=== PATIENT | male | born 1935 | race Caucasian/White ===

== ENCOUNTER 2017-06-19 15:44 | Inpatient (IN) | payer MEDICARE, OTHER ==
[~2017-06-19] VITALS: Ht 167.6 cm; Wt 75.0 kg
[~2017-06-19 15:44] MED LIST: ASPI81TA28 PO; ATEN-173 PO; LISI20TA3 PO; PANT40TA PO
[2017-06-19 17:06] LABS: BASO % 0.5 %; BASO ABS # 0.03 K/uL (0-0.2); EOS % 0.5 %; EOS ABS # 0.03 K/uL (0-0.5); HEMATOCRIT 37.2 % (42-52); HEMOGLOBIN 12.4 g/dL (14.0-18.0); IG# 0.01 K/uL (0.00-0.02); LYMPH % 6.6 %; LYMPH ABS # 0.42 K/uL (1.2-3.4); MEAN CELL VOLUME 92.1 fL (80-100); MEAN CORPUSCULAR HEMOGLOBIN 30.7 pg (25-34); MEAN CORPUSCULAR HGB CONC 33.3 g/dl (32-36); MEAN PLATELET VOLUME 8.9 fL (7.4-10.4); MONO ABS # 0.51 K/uL (0.11-0.59); NEUT % 84.2 %; NEUT ABS # 5.41 K/uL (1.4-6.5); PLATELET COUNT 186 K/uL (130-400); RED CELL DISTRIBUTION WIDTH CV 13.9 % (11.5-14.5); RED CELL DISTRIBUTION WIDTH SD 47.3 fL (36.4-46.3); WHITE BLOOD COUNT 6.41 K/uL (4.8-10.8)
[2017-06-19 17:16] LABS: INR 1.1 (0.9-1.1); PTT PATIENT 33.8 SECONDS (21.0-31.0)
[2017-06-19 17:23] LABS: ALT/SGPT 20 U/L (12-78); BLOOD UREA NITROGEN 22 mg/dl (7-18); CALCIUM 8.5 mg/dl (8.5-10.1); CARBON DIOXIDE 24 mmol/L (21-32); CREATININE 1.34 mg/dl (0.60-1.40); GLUCOSE 98 mg/dl (70-99); POTASSIUM 4.2 mmol/L (3.5-5.1); SODIUM 133 mmol/L (136-145)
[2017-06-19 17:34] LABS: ALKALINE PHOSPHATASE 104 U/L (45-117); AST/SGOT 18 U/L (15-37); TOTAL PROTEIN 7.3 gm/dl (6.4-8.2)
--- NOTE | 2017-06-19 17:53 | DIAGNOSTIC IMAGING REPORT ---
TWO VIEW CHEST CLINICAL HISTORY: Cough. FINDINGS: AP and lateral chest radiographs are obtained. No prior studies are available for comparison at the time of dictation. The AP views degraded by patient rotation. The heart is enlarged. There diffuse bilateral airspace opacities, greatest in the left upper and right lower lobes. No large pleural effusion is identified. There is no pneumothorax. The skeletal structures are osteopenic. Bony thorax appears intact. IMPRESSION: 1. Cardiomegaly. 2. There are multifocal bilateral airspace opacities. Is present pulmonary edema and/or multifocal pneumonia. Clinical and laboratory correlation will be required. Radiographic follow-up to resolution is recommended. Electronically signed by: Lion Patterson M.D. 06/19/2017 5:52 PM Dictated Date/Time: 06/19/2017 5:50 PM
[2017-06-19] MEDS ORDERED: LEVAQUIN 750MG / 150ML D5W IV STA (18:08)
[2017-06-19] MEDS ORDERED: ASPIRIN 324 MG CHEW PO STA (18:19)
[2017-06-19] MEDS ORDERED: ACET-1311 PO (18:46)
[2017-06-19] MEDS ORDERED: HydrALAZINE HCL 20 MG/ML VIAL IV. PRN (19:15)
[2017-06-19] MEDS ORDERED: SODIUM CHLORIDE 0.9% 1000ML 1,000 ML IV SCH (19:15)
[2017-06-19] MEDS ORDERED: NITROGLYCERIN 0.4 MG SL PER TAB CHARGE SL PRN (19:15)
[2017-06-19] MEDS ORDERED: ONDANSETRON INJ 2 MG/ML 2 ML VIAL IV PRN (19:15)
[2017-06-19] MEDS ORDERED: POLYETHYLENE (MIRALAX) 17 GM PACK PO PRN (19:15)
[2017-06-19] MEDS ORDERED: MoRPHine SULFATE 2 MG/ML CARP IV PRN (19:15)
[2017-06-19] MEDS ORDERED: ALUMINUM/MAGNESIUM/SIMETH (MAALOX MAX) 30 ML UDC PO PRN (19:15)
[2017-06-19] MEDS ORDERED: MAGNESIUM HYDROXIDE SUSP 30 ML UDC PO PRN (19:15)
[2017-06-19] MEDS ORDERED: METOPROLOL TARTRATE 1 MG/ML VIAL IV PRN (19:30)
--- NOTE | 2017-06-19 19:39 | History and Physical ---
History & Physical Date & Time of Service: Jun 19, 2017 at 19:19 Chief Complaint: Cath Site Pain, Weakness, Cough Primary Care Physician: No Doctor, Assigned History of Present Illness Source: patient, clinic records, hospital records Patient is a pleasant 81 y/o male, with PMHx of urinary retention w/ chronic Haque, who presented to the ED because of a cough. Patient is a poor historian, no family present. He is visiting his niece from [place]. He states he has a productive milky white cough for a few days now. He denies any other complaints. He has urinary retention and a chronic Haque in place- he notes this AM he had penile spasms, but that has since resolved. He denies following w / urology here- his Urologist is in [place]. He states he a fall the other night while trying to get out of bed. Denies syncope, lightheadedness/ dizziness. He denies any injuries. Patient denies any fever, chills, sweats, lightheadedness, dizziness, vision changes, CP, palpitations, edema, SOB, wheezing, abdominal pain, nausea, vomiting, diarrhea, urinary symptoms, melena, numbness/tingling, weakness, muscle/joint pain, anxiety/depression, active bleeding, or new skin discoloration/changes. Past Medical/Surgical History Medical Problems: None Surgical History: None Family History Cancer Diabetes mellitus Heart disease Hypertension Social History Smoking Status: Former Smoker Alcohol Use: none Drug Use: marijuana Marital Status: Housing status: lives with family Occupational Status: retired Allergies Coded Allergies: No Known Allergies (Unverified , 07/26/13) Home Medications Scheduled PRN Acetaminophen (Tylenol), 650 MG PO BID PRN for Pain or Fever Physical Exam Vital Signs Date Time Temp Pulse Resp B/P (MAP) Pulse Ox O2 Delivery O2 Flow Rate FiO2 06/19/17 18:30 76 31 149/100 98 Room Air 06/19/17 17:18 83 29 145/97 94 Room Air 06/19/17 17:07 75 06/19/17 15:50 37.5 93 20 121/79 100 Room Air General Appearance: no apparent distress Head: normocephalic, atraumatic Eyes: normal inspection, PERRL ENT: hearing grossly normal Neck: supple Respiratory/Chest: no respiratory distress, no accessory muscle use, + decreased breath sounds (throughout ), + wheezing (mild expiratory wheeze throughout ) Cardiovascular: + irregularly irregular (rate controlled ) Abdomen/GI: normal bowel sounds, non tender, soft Back: normal inspection Extremities/Musculoskelatal: no calf tenderness, + swelling (+1 pitting edema of BLEs) Neurologic/Psych: alert, normal mood/affect, oriented x 3 Skin: normal color, warm/dry, no rash Diagnostics Laboratory Results Results Past 24 Hours Test 06/19/17 16:34 06/19/17 17:30 Range/Units White Blood Count 6.41 4.8-10.8 K/uL Red Blood Count 4.04 4.7-6.1 M/uL Hemoglobin 12.4 14.0-18.0 g/dL Hematocrit 37.2 42-52 % Mean Corpuscular Volume 92.1 80-100 fL Mean Corpuscular Hemoglobin 30.7 25-34 pg Mean Corpuscular Hemoglobin Concent 33.3 32-36 g/dl Platelet Count 186 130-400 K/uL Mean Platelet Volume 8.9 7.4-10.4 fL Neutrophils (%) (Auto) 84.2 % Lymphocytes (%) (Auto) 6.6 % Monocytes (%) (Auto) 8.0 % Eosinophils (%) (Auto) 0.5 % Basophils (%) (Auto) 0.5 % Neutrophils # (Auto) 5.41 1.4-6.5 K/uL Lymphocytes # (Auto) 0.42 1.2-3.4 K/uL Monocytes # (Auto) 0.51 0.11-0.59 K/uL Eosinophils # (Auto) 0.03 0-0.5 K/uL Basophils # (Auto) 0.03 0-0.2 K/uL RDW Standard Deviation 47.3 36.4-46.3 fL RDW Coefficient of Variation 13.9 11.5-14.5 % Immature Granulocyte % (Auto) 0.2 % Immature Granulocyte # (Auto) 0.01 0.00-0.02 K/uL Prothrombin Time 12.0 9.0-12.0 SECONDS Prothromb Time International Ratio 1.1 0.9-1.1 Activated Partial Thromboplast Time 33.8 21.0-31.0 SECONDS Partial Thromboplastin Ratio 1.3 Sodium Level 133 136-145 mmol/L Potassium Level 4.2 3.5-5.1 mmol/L Chloride Level 101 98-107 mmol/L Carbon Dioxide Level 24 21-32 mmol/L Anion Gap 8.0 3-11 mmol/L Blood Urea Nitrogen 22 7-18 mg/dl Creatinine 1.34 0.60-1.40 mg/dl Estimated GFR () 58.0 Estimated GFR (Non- 50.0 BUN/Creatinine Ratio 16.1 10-20 Random Glucose 98 70-99 mg/dl Calcium Level 8.5 8.5-10.1 mg/dl Magnesium Level 2.0 1.8-2.4 mg/dl Total Bilirubin 0.8 0.2-1 mg/dl Direct Bilirubin 0.3 0-0.2 mg/dl Aspartate Amino Transf (AST/SGOT) 18 15-37 U/L Alanine Aminotransferase (ALT/SGPT) 20 12-78 U/L Alkaline Phosphatase 104 45-117 U/L Troponin I 0.054 0-0.045 ng/ml Total Protein 7.3 6.4-8.2 gm/dl Albumin 3.0 3.4-5.0 gm/dl Urine Color DK YELLOW Urine Appearance CLOUDY CLEAR Urine pH 5.5 4.5-7.5 Urine Specific [place] 1.019 1.000-1.030 Urine Protein 3+ NEG Urine Glucose (UA) NEG NEG Urine Ketones NEG NEG Urine Occult Blood 3+ NEG Urine Nitrite NEG NEG Urine Bilirubin NEG NEG Urine Urobilinogen NEG NEG Urine Leukocyte Esterase MODERATE NEG Urine WBC (Auto) >30 0-5 /hpf Urine RBC (Auto) >30 0-4 /hpf Urine Hyaline Casts (Auto) 1-5 0-5 /lpf Urine Epithelial Cells (Auto) 5-10 0-5 /lpf Urine Bacteria (Auto) NEG NEG Microbiology Results 06/19/17 Blood Culture, Received Pending 06/19/17 Blood Culture, Received Pending Diagnostic Radiology TWO VIEW CHEST CLINICAL HISTORY: Cough. FINDINGS: AP and lateral chest radiographs are obtained. No prior studies are available for comparison at the time of dictation. The AP views degraded by patient rotation. The heart is enlarged. There diffuse bilateral airspace opacities, greatest in the left upper and right lower lobes. No large pleural effusion is identified. There is no pneumothorax. The skeletal structures are osteopenic. Bony thorax appears intact. IMPRESSION: 1. Cardiomegaly. 2. There are multifocal bilateral airspace opacities. Is present pulmonary edema and/or multifocal pneumonia. Clinical and laboratory correlation will be required. Radiographic follow-up to resolution is recommended. Electronically signed by: Lion Patterson M.D. 06/19/2017 5:52 PM Dictated Date/Time: 06/19/2017 5:50 PM The status of this report is Signed. Draft = Not yet reviewed or approved by Radiologist. Signed = Reviewed and approved by Radiologist. EKG JAGDEEP NOLASCO ID:[id number] 19-JUN-2017 16:24:12 [facility] Atrial fibrillation Right bundle branch block Left anterior fascicular block Bifascicular block Septal infarct , age undetermined Abnormal ECG No previous ECGs available 25mm/s 10mm/mV 150Hz 8.0 SP2 12SL 241 SUPA: 0 Referred by: Referred Self Unconfirmed Vent. rate 73 BPM DE interval * ms QRS duration 154 ms QT/QTc 440/484 ms P-R-T axes * -72 78 1935 (81 yr) Male Room:[facility] Loc:15 Manufacturing Intern:JUSTYNA NORRIS Test ind: JAGDEEP NOLASCO ID:[id number] 19-JUN-2017 18:27:20 [facility] Undetermined rhythm Left axis deviation Right bundle branch block Abnormal ECG When compared with ECG of 19-JUN-2017 16:24, (unconfirmed) Current undetermined rhythm precludes rhythm comparison, needs review 25mm/s 10mm/mV 150Hz 8.0 SP2 12SL 241 SUPA: 3 Referred by: Referred Self Unconfirmed Vent. rate 74 BPM DE interval * ms QRS duration 136 ms QT/QTc 436/483 ms P-R-T axes * -70 62 1935 (81 yr) Male Room: Loc:15 Manufacturing Intern:Jessica Whitney Test ind: Impression Assessment and Plan Patient is a pleasant 81 y/o male, with PMHx of urinary retention w/ chronic Haque, who presented to the ED because of a cough. Multifocal PNA vs ?CHF, new onset a.fib- rates controlled, elevated troponin: - Admit to tele for cardiac monitoring - Trend cardiac enzymes - Obtain ECHO - Start IV Heparin gtt with plans to transition to PO anticoagulation - IV Metoprolol PRN for HR >120 - IV Levaquin - Nitro and IV Morphine PRN for chest pain - DuoNebs QID and PRN for SOB/wheezing - BCx, sputum culture, MRSA swab pending - Check TSH, lipid panel, hgbA1c - Check bNP Mild hyponatremia: Follow PRP Urinary retention w/ indwelling Haque- noted HTN: IV Hydralazine PRN DVT prophylaxis: Heparin gtt Code status: LEVEL V, DNR Dispo: Visiting w/ niece, from [place]- PT/OT and CM consulted Attending Documentation: Patient seen and examined, chart reviewed, case discussed with REMA Rosas and I agree with her assessment and plan as documented above. Briefly, patient is a 81yo male with history of urinary retention with chronic Haque in place who presents to the ER with productive cough x 4 days, decreased appetite and penile spasm. On physical exam he is afebrile, hemodynamically stable. Pleasant elderly gentleman in NAD. HEENT exam is unremarkable. Neck supple, no JVD. Heart +S1/ S2, irregularly irregular, 3/6 MILAN at apex with radiation to back, no rubs/ gallops. Lungs with bilateral crackles to mid lung chowdhury. 2+ pitting LE edema to the knees equal bilaterally. Haque catheter in place. Labs significant for normocytic/normochromic anemia, Hg=12.4 and Hct=37.2, Elevated troponin at 0.054. +UA. CXR suggestive for multifocal PNA. EKG with AF at 73 with bifascicular block and ST depressions Impression: 81yo male with productive cough, new onset AF and mildly elevated troponin 1. ?PNA vs CHF check BNP, 2D echo, cultures. Levaquin for PNA 2. AF patient reports no prior cardiac history. Rate controlled at present. Will anticoagulate with heparin gtt for now. Metoprolol PRN Check TSH, trend cardiac enzymes, monitor electrolytes. Cardiology consultation per discretion of day team 3. Elevated troponin monitor cardiac enzymes, ASA 81mg po daily, Statin 4. Remainder of plan as above Resuscitation Status LEVEL V, DNR VTE Prophylaxis Will order VTE Prophylaxis: Yes
[2017-06-19] MEDS: ALBUT/IPRATROP 3MG/0.5MG NEB 3 ML VIAL INH SCH (20:00)
[2017-06-19] MEDS ORDERED: HEPARIN IV BOLUS 5,000 UNIT in SYRINGE 0 ML IV ONE (21:15)
[2017-06-19] MEDS ORDERED: FUROSEMIDE INJ 40 MG in SYRINGE 0 ML IV ONE (21:15)
[2017-06-19] MEDS: HEPARIN 25,000 UNIT/500ML D5W 500 ML IV SCH (21:40)
--- NOTE | 2017-06-19 22:02 | EMERGENCY ROOM VISIT NOTE ---
History Report prepared by Melania: Yovani Bradford Under the Supervision of: Dr. Mundo Sanchez M.D. First contact with patient: 16:06 Chief Complaint: OTHER COMPLAINT Stated Complaint: CATH SITE PAIN, WEAKNESS, COUGH History of Present Illness The patient is a 81 year old male who presents to the Emergency Room with complaints of constant penile pain around the entry site of his urinary catheter that began on Sunday 4 days ago. He denies any leaking or discharge from the penis. The patient has had the catheter placed since 2012, secondary to chronic urinary issues. The catheter was most recently changed 2 weeks ago by urology. The patient's daughter notes that he does follow with Dr. Mejía, who the patient will see later this month to see if a suprapubic catheter would be more appropriate. In March, 3 months ago, the patient was diagnosed with a UTI and chronic kidney failure at a hospital in [place]. He was told that his kidney failure was due to Ibuprofen usage. He has not had any Ibuprofen since this diagnosis. He has also had a persistent cough that is producing a "milky" mucous per the daughter. There has not been any fevers or chest pain. He has been slightly short of breath. The daughter continued to mention that his breathing seemed "faster" last night. The patient did experience a falling episode last night as he was trying to get out of bed. He slid down onto his but and denies hitting his head or injuring his neck. The swelling in his feet seems to be worsening as well. Source of History: patient, family Onset: 4 days ago Position: other () Quality: other (Penis pain around catheter site) Timing: constant Associated Symptoms: + cough, + SOB, No fevers, No headache, No neck pain, No chest pain Review of Systems See HPI for pertinent positives & negatives. A total of 10 systems reviewed and were otherwise negative. Past Medical & Surgical Medical Problems: (1) A-fib (2) HTN (hypertension) (3) PNA (pneumonia) (4) Skin problems (5) Stomach problems (6) Ulcer (7) Urinary problem Family History Cancer Diabetes mellitus Heart disease Hypertension Social History Smoking Status: Former Smoker Marital Status: Housing Status: unknown Occupation Status: retired Current/Historical Medications Scheduled PRN Acetaminophen (Tylenol), 650 MG PO BID PRN for Pain or Fever Allergies Coded Allergies: No Known Allergies (Unverified , 5/17/14) Physical Exam Vital Signs Date Time Temp Pulse Resp B/P (MAP) Pulse Ox O2 Delivery O2 Flow Rate FiO2 06/19/17 18:30 76 31 149/100 98 Room Air 06/19/17 17:18 83 29 145/97 94 Room Air 06/19/17 17:07 75 06/19/17 15:50 37.5 93 20 121/79 100 Room Air Physical Exam Constitutional: Vital signs reviewed. Eyes: Pupils are equal round reactive to light. Conjunctiva are noninjected. ENT: Pharynx is clear without erythema or exudate. Mucous membranes are moist. Neck supple without meningeal signs. Respiratory: Clear to auscultation bilaterally. Breath sounds are equal bilaterally. Cardiovascular: Regular rate and rhythm. No rubs or gallops. GI: Soft, nondistended and nontender. Bowel sounds are present. Musculoskeletal: Mild bilateral pedal edema. No lower extremity tenderness. No flank or rib tenderness. Integumentary: No cyanosis. Neurological: The patient is awake and alert. No focal deficits. Psychiatric: Normal affect. : The phallus shows some whitish coating, with some mild erythema and tenderness. There is a Haque catheter in place without any bleeding or discharge. Medical Decision & Procedures ER Provider Diagnostic Interpretation: Radiology results as stated below per my review and the radiologist's interpretation: TWO VIEW CHEST CLINICAL HISTORY: Cough. FINDINGS: AP and lateral chest radiographs are obtained. No prior studies are available for comparison at the time of dictation. The AP views degraded by patient rotation. The heart is enlarged. There diffuse bilateral airspace opacities, greatest in the left upper and right lower lobes. No large pleural effusion is identified. There is no pneumothorax. The skeletal structures are osteopenic. Bony thorax appears intact. IMPRESSION: 1. Cardiomegaly. 2. There are multifocal bilateral airspace opacities. Is present pulmonary edema and/or multifocal pneumonia. Clinical and laboratory correlation will be required. Radiographic follow-up to resolution is recommended. Electronically signed by: Lion Patterson M.D. 06/19/2017 5:52 PM Dictated Date/Time: 06/19/2017 5:50 PM Laboratory Results 06/19/17 16:34 Red Blood Count 4.04, Mean Corpuscular Volume 92.1, Mean Corpuscular Hemoglobin 30.7, Mean Corpuscular Hemoglobin Concent 33.3, Mean Platelet Volume 8.9, Neutrophils (%) (Auto) 84.2, Lymphocytes (%) (Auto) 6.6, Monocytes (%) (Auto) 8.0, Eosinophils (%) (Auto) 0.5, Basophils (%) (Auto) 0.5, Neutrophils # (Auto) 5.41, Lymphocytes # (Auto) 0.42, Monocytes # (Auto) 0.51, Eosinophils # (Auto) 0.03, Basophils # (Auto) 0.03 06/19/17 16:34 Test 06/19/17 16:34 06/19/17 17:30 White Blood Count 6.41 K/uL (4.8-10.8) Red Blood Count 4.04 M/uL (4.7-6.1) Hemoglobin 12.4 g/dL (14.0-18.0) Hematocrit 37.2 % (42-52) Mean Corpuscular Volume 92.1 fL (80-100) Mean Corpuscular Hemoglobin 30.7 pg (25-34) Mean Corpuscular Hemoglobin Concent 33.3 g/dl (32-36) Platelet Count 186 K/uL (130-400) Mean Platelet Volume 8.9 fL (7.4-10.4) Neutrophils (%) (Auto) 84.2 % Lymphocytes (%) (Auto) 6.6 % Monocytes (%) (Auto) 8.0 % Eosinophils (%) (Auto) 0.5 % Basophils (%) (Auto) 0.5 % Neutrophils # (Auto) 5.41 K/uL (1.4-6.5) Lymphocytes # (Auto) 0.42 K/uL (1.2-3.4) Monocytes # (Auto) 0.51 K/uL (0.11-0.59) Eosinophils # (Auto) 0.03 K/uL (0-0.5) Basophils # (Auto) 0.03 K/uL (0-0.2) RDW Standard Deviation 47.3 fL (36.4-46.3) RDW Coefficient of Variation 13.9 % (11.5-14.5) Immature Granulocyte % (Auto) 0.2 % Immature Granulocyte # (Auto) 0.01 K/uL (0.00-0.02) Prothrombin Time 12.0 SECONDS (9.0-12.0) Prothromb Time International Ratio 1.1 (0.9-1.1) Activated Partial Thromboplast Time 33.8 SECONDS (21.0-31.0) Partial Thromboplastin Ratio 1.3 Anion Gap 8.0 mmol/L (3-11) Estimated GFR () 58.0 Estimated GFR (Non- 50.0 BUN/Creatinine Ratio 16.1 (10-20) Calcium Level 8.5 mg/dl (8.5-10.1) Magnesium Level 2.0 mg/dl (1.8-2.4) Total Bilirubin 0.8 mg/dl (0.2-1) Direct Bilirubin 0.3 mg/dl (0-0.2) Aspartate Amino Transf (AST/SGOT) 18 U/L (15-37) Alanine Aminotransferase (ALT/SGPT) 20 U/L (12-78) Alkaline Phosphatase 104 U/L (45-117) Troponin I 0.054 ng/ml (0-0.045) Pro-B-Type Natriuretic Peptide > 01323 pg/ml (0-1800) Total Protein 7.3 gm/dl (6.4-8.2) Albumin 3.0 gm/dl (3.4-5.0) Thyroid Stimulating Hormone (TSH) 0.787 uIu/ml (0.300-4.500) Urine Color DK YELLOW Urine Appearance CLOUDY (CLEAR) Urine pH 5.5 (4.5-7.5) Urine Specific [place] 1.019 (1.000-1.030) Urine Protein 3+ (NEG) Urine Glucose (UA) NEG (NEG) Urine Ketones NEG (NEG) Urine Occult Blood 3+ (NEG) Urine Nitrite NEG (NEG) Urine Bilirubin NEG (NEG) Urine Urobilinogen NEG (NEG) Urine Leukocyte Esterase MODERATE (NEG) Urine WBC (Auto) >30 /hpf (0-5) Urine RBC (Auto) >30 /hpf (0-4) Urine Hyaline Casts (Auto) 1-5 /lpf (0-5) Urine Epithelial Cells (Auto) 5-10 /lpf (0-5) Urine Bacteria (Auto) NEG (NEG) Laboratory results as reviewed by me. Medications Administered Medications (Trade) Dose Ordered Sig/Brittany Route Start Time Stop Time Status Last Admin Dose Admin Levofloxacin (Levaquin / D5W) 750 mg NOW STAT IV 06/19/17 18:08 4 18:09 DC 06/19/17 18:42 750 MG Aspirin (Aspirin Chew) 324 mg NOW STAT PO 06/19/17 18:19 06/19/17 18:20 DC 06/19/17 18:42 324 MG ECG Per My Interpretation Indication: SOB/dyspnea Rate (beats per minute): 73 Rhythm: atrial fibrillation Findings: other (bifascicular block with ST depression, biphasic t-waves septally. ) Change: REPEAT EKG: Shows sinus rhythm with frequent PVCs, atrial-fibrillation 74, RBBB , PVCs present, ST depressions resolved. ED Course 1608: The patient was evaluated in room B12B. A complete history and physical exam was performed. 1807: Ordered Levaquin 750 mg IV. 1811: I discussed the case with the patient and his daughter. He is not, and has not, had any chest discomfort. 1818: Ordered Aspirin 324 mg PO. 1842: I discussed the case with the patient at this time. There is no prior history of atrial fibrillation or contraindication for anticoagulation therapy. I discussed the ECG changes with him. I discussed the case with Dr. Lev PHAN Hospitalist. She states she would start the patient on anticoagulation therapy after addressing his fall risk. Medical Decision This is a 81-year-old male who presents with cough, shortness of breath, pain at his Haque catheter. Differential diagnosis includes pneumonia, cardiac, UTI , balanitis, bronchitis. I did perform a limited focused review of portions of the patient's old chart on the electronic medical record. The patient has had no recent pertinent visits to this hospital. I did evaluate the patient as noted above. The patient has several issues today. He has pain on his Haque catheter. He appears to have some balanitis. His Haque catheter was changed. He also complains of cough with shortness of breath. His family has been ill with similar symptoms. IV access was established. The patient was placed on a continuous environmental monitoring technician. I did order and personally review the patient's 12-lead EKG and chest x-ray as described above. His twelve-lead EKG shows atrial fibrillation. He states he has never had atrial fibrillation. His daughter confirms this. He also has some ST depressions and biphasic T waves. His chest x-ray shows multifocal pneumonia. Blood cultures were ordered. I did treat the patient with IV Levaquin. I did order and review the patient's blood work as noted in the electronic medical record. His troponin is elevated. I did reassess the patient. I did discuss the test results with the patient. He denies ever having any chest discomfort. He denies having atrial fibrillation. I did repeat another twelve-lead EKG which showed improvement of the ST elevations but he did have continued atrial fibrillation. I did recommend admission to the hospital for IV antibiotics as well as cardiology consultation and anticoagulation. I did discuss the case with the hospitalist and mental health case manager. The hospitalist will determine which anticoagulant to start. Medication Reconcilliation Current Medication List: was personally reviewed by me Blood Pressure Screening Patient's blood pressure: Normal blood pressure Consults Time Called: 1837 Consulting Physician: Dr. Lev PHAN Hospitalist Returned Call: 1842 Dr. Lev PHAN Hospitalist. She states she would start the patient on anticoagulation therapy after addressing his fall risk. Impression Primary Impression: Multifocal pneumonia Additional Impressions: Abnormal ECG Elevated troponin I level Catheter-associated urinary tract infection New onset a-fib Scribe Attestation The scribe's documentation has been prepared under my direct and personally reviewed by me in its entirety. I confirm that the note above accurately reflects all work, treatment, procedures, and medical decision making performed by me. Departure Information Dispostion Being Evaluated By Hospitalist Referrals No Doctor, Assigned (PCP) Patient Instructions My [facility] Problem Qualifiers Additional Impressions: Catheter-associated urinary tract infection Indwelling urinary catheter type: indwelling urethral catheter Encounter type : initial encounter Qualified Codes: T83.511A - Infection and inflammatory reaction due to indwelling urethral catheter, initial encounter; N39.0 - Urinary tract infection, site not specified
[2017-06-19 22:07] VITALS: BP 131/81; PULSE 67; TEMP 37.6; O2SAT 96; Ht 167.6 cm; Wt 75.0 kg
[2017-06-19] MEDS ORDERED: PNEUMOCOCCAL ADMINISTRATION CHARGE ONE (23:00)
[2017-06-19] MEDS ORDERED: PNEUMOCOCCAL POLYSACCHARIDES 25 MCG/0.5 ML VIAL/SYR IM. ONE (23:00)
[2017-06-19 23:33] VITALS: BP 132/79; PULSE 59; TEMP 36.6; O2SAT 96
[2017-06-20] VITALS (13 sets, daily range): BP systolic 136–178; BP diastolic 74–97; PULSE 57–78; TEMP 36.7–37.6; O2SAT 94–99
[2017-06-20 00:50] LABS: CKMB 0.9 ng/ml (0.5-3.6)
[2017-06-20 04:03] LABS: HEMATOCRIT 36.1 % (42-52); MEAN CELL VOLUME 91.2 fL (80-100); MEAN CORPUSCULAR HEMOGLOBIN 30.3 pg (25-34); MEAN CORPUSCULAR HGB CONC 33.2 g/dl (32-36); MEAN PLATELET VOLUME 8.7 fL (7.4-10.4); PLATELET COUNT 174 K/uL (130-400); RED CELL DISTRIBUTION WIDTH CV 13.8 % (11.5-14.5); RED CELL DISTRIBUTION WIDTH SD 46.5 fL (36.4-46.3); WHITE BLOOD COUNT 4.87 K/uL (4.8-10.8)
[2017-06-20 04:28] LABS: CALCIUM 8.7 mg/dl (8.5-10.1); CREATININE 1.27 mg/dl (0.60-1.40); POTASSIUM 4.1 mmol/L (3.5-5.1)
[2017-06-20 04:39] LABS: PTT PATIENT 47.4 SECONDS (21.0-31.0)
[2017-06-20] MEDS: ALBUT/IPRATROP 3MG/0.5MG NEB 3 ML VIAL INH SCH ×4 (07:05→19:04)
[2017-06-20] MEDS: ASPIRIN 81 MG CHEW PO SCH (07:45)
[2017-06-20] MEDS ORDERED: ATORVASTATIN 40 MG TAB PO SCH (09:00)
[2017-06-20 09:15] LABS: CKMB 0.6 ng/ml (0.5-3.6)
--- NOTE | 2017-06-20 10:56 | ECHOCARDIOGRAM REPORT ---
*NOTICE TO RECEIVING [employer] This information is strictly Confidential and protected under [place] law. [place] law prohibits you from making any further disclosure of this information unless further disclosure is expressly permitted by the written consent of the person to whom it pertains or is authorized by law. A general authorization for the release of medical or other information is not sufficient for this purpose. Hospital accepts no responsibility if the information is made available to any other person, INCLUDING THE PATIENT. Interpretation Summary * Name: JAGDEEP NOLASCO Study Date: 06/20/2017 07:35 AM BP: 152/92 mmHg * Patient Location: C.2T\S\S238\S\2 HR: 69 * : 1935 (M/d/yyyy) Gender: Male Height: 66 in * Age: 81 yrs Ethnicity: CA Weight: 164 lb * Ordering Physician: Mitzy Rosas * Referring Physician: Self, Referred * Performed By: Ashanti Gaitan, [facility] * * Reason For Study: A-FIB * BSA: 1.8 m2 * -- Conclusions -- * 1. Normal LV size. Mild concentric LVH. * 2. LVEF 35-40%. Mid to apical septum akinetic. Severe inferior hypokinesis. Moderate inferolateral hypokinesis. * 3. Normal RV size and function. * 4. Severe calcific aortic stenosis. Mild to moderate aortic regurgitation. * 5. Mild mitral regurgitation. * 6. Moderate pulmonary hypertension. Est PASP 55-60 mmHg. Normal RA pressures. * 7. Grade II diastolic dysfunction. * 8. No prior studies for comparison. Procedure Details * A complete two-dimensional transthoracic echocardiogram was performed (2D, M-mode, Doppler and color flow Doppler). Left Ventricle * The left ventricle is grossly normal size. * There is mild concentric left ventricular hypertrophy. * Ejection Fraction = 35-40%. * Mid to apical septum akinetic. Severe inferior hypokinesis. Moderate inferolateral hypokinesis. Right Ventricle * The right ventricle is grossly normal size. * The right ventricular systolic function is normal as assessed by tricuspid annular plane systolic excursion (TAPSE) (normal >1.5 cm). Atria * The left atrium is mildly dilated. * Borderline right atrial enlargement. * No ASD detected; PFO is not assessed. Mitral Valve * Posterior leaflet restricted * There is mild mitral regurgitation. Tricuspid Valve * There is trace tricuspid regurgitation. * Right ventricular systolic pressure is elevated at 50-60mmHg. Aortic Valve * Aortic valve calcified, thickned, restricted * Severe valvular aortic stenosis. * Mild to moderate aortic regurgitation. Pulmonic Valve * The pulmonary valve is inadequately visualized, but the Doppler data is adequate for interpretation. * There is no pulmonic valvular stenosis. * Mild pulmonic valvular regurgitation. Great Vessels * The aortic root and proximal ascending aorta are normal sized. Pericardium/Pleural * There is no pericardial effusion. Great Vessels * Normal inferior vena cava size and collapsability with sniff indicates a normal right atrial pressure of 3 mmHg Left Ventricular Diastolic Function * Diastolic dysfunction, Grade II, consistent with elevated left atrial pressure. MMode 2D Measurements and Calculations IVSd 1.5 cm IVSs 1.6 cm LVIDd 5.5 cm LVIDs 4.1 cm LVPWd 1.3 cm LVPWs 1.4 cm IVS/LVPW 1.2 FS 25.7 % EDV(Teich) 146.7 ml ESV(Teich) 73.2 ml EF(Teich) 50.1 % EDV(cubed) 165.4 ml ESV(cubed) 67.8 ml EF(cubed) 59.0 % % IVS thick 7.3 % % LVPW thick 8.1 % LV mass(C)d 347.0 grams LV mass(C)dI 188.8 grams/m\S\2 LV mass(C)s 248.9 grams LV mass(C)sI 135.4 grams/m\S\2 SV(Teich) 73.5 ml SI(Teich) 40.0 ml/m\S\2 SV(cubed) 97.6 ml SI(cubed) 53.1 ml/m\S\2 LA dimension 4.9 cm LVOT diam 1.8 cm LVOT area 2.6 cm\S\2 LVAd ap4 21.6 cm\S\2 LVLd ap4 6.9 cm EDV(MOD-sp4) 56.2 ml EDV(sp4-el) 57.4 ml LVAs ap4 33.3 cm\S\2 LVLs ap4 9.9 cm ESV(MOD-sp4) 89.6 ml ESV(sp4-el) 95.3 ml EF(MOD-sp4) -59.59 % EF(sp4-el) -66.03 % SV(MOD-sp4) -33.46 ml SI(MOD-sp4) -18.20 ml/m\S\2 SV(sp4-el) -37.89 ml SI(sp4-el) -20.61 ml/m\S\2 Doppler Measurements and Calculations MV E max luis 131.2 cm/sec MV P1/2t max luis 122.5 cm/sec MV P1/2t 76.7 msec MVA(P1/2t) 2.9 cm\S\2 MV dec slope 467.6 cm/sec\S\2 MV dec time 0.15 sec Ao V2 max 431.4 cm/sec Ao max PG 74.5 mmHg Ao max PG (full) 71.4 mmHg Ao V2 mean 328.4 cm/sec Ao mean PG 49.3 mmHg Ao mean PG (full) 47.6 mmHg Ao V2 VTI 104.9 cm HENRY(I,A) 0.47 cm\S\2 HENRY(I,D) 0.47 cm\S\2 HENRY(V,A) 0.53 cm\S\2 HENRY(V,D) 0.53 cm\S\2 AI max luis 415.9 cm/sec AI max PG 69.2 mmHg AI dec slope 278.7 cm/sec\S\2 AI P1/2t 437.0 msec LV V1 max PG 3.0 mmHg LV V1 mean PG 1.7 mmHg LV V1 max 86.9 cm/sec LV V1 mean 60.6 cm/sec LV V1 VTI 18.5 cm SV(LVOT) 48.8 ml SI(LVOT) 26.6 ml/m\S\2 PA V2 max 181.2 cm/sec PA max PG 13.1 mmHg PI max luis 291.6 cm/sec PI max PG 34.0 mmHg PI dec slope 183.4 cm/sec\S\2 PI P1/2t 465.7 msec TR max luis 326.0 cm/sec
--- NOTE | 2017-06-20 12:20 | Cardiology Consultation ---
Cardiology Consultation Date of Consultation: Jun 20, 2017. Requesting Physician: Ashanti Burnett Reason for Consultation: AF, Pt evaluation today including: conversation w/ patient, conversation w/ family , physical exam, lab review, review of studies, review of inpatient medication list History of Present Illness This is a very pleasant 81-year-old gentleman who lives in [place] but has had healthcare in other states but is currently visiting his niece here in [place]. He has had urologic problems due to an indwelling catheter, but has not been seen by cardiology locally. I do not have good records of his prior cardiovascular history, he initially told me that he was not aware of having any trouble with his heart however his niece tells me that he was evaluated in [place] and was told that he did have some cardiac problems (she did not know specifics) but refused evaluation at that time. He describes doing well physically until the last year so when he has had a lot of difficulties. Specifically he has less ability to do activities then he could in the past, he really cannot live by himself anymore and he has difficulty raising his right arm overhead and his speech has become more difficult to understand according to his knees. All of these things occurred over the last year, perhaps 6 months. He does not have lightheadedness or dizziness, he has no awareness of his heart rhythm and he does not have exertional chest discomfort that he will admit. On admission here for urologic issues he was noted to be in atrial fibrillation and have some congestive heart failure findings on chest x-ray. He also has significant valvular heart disease. Past Medical/Surgical History (1) HTN (hypertension) (2) Ulcer (3) Urinary problem Family History Cancer Diabetes mellitus Heart disease Hypertension Social History Smoking Status: Former Smoker History of Alcohol Use: No Review of Systems Constitutional: No fever, No weight loss, No weakness Respiratory: + shortness of breath, + dyspnea on exertion, No cough, No wheezing Cardiac: No chest pain, No orthopnea, No PND, No edema, No palpitations Abdomen: No pain, No nausea, No vomiting, No diarrhea, No GI bleeding Male : No urinary frequency, No nocturia more than once/night, No slowing stream, No sexual dysfunction Neurologic: No paralysis, No weakness, No numbness/tingling, No balance problems Heme: No abnormal bleeding/bruising, No clotting problems Endo: No fatigue Skin: No problem reported Inability to raise his right arm above his shoulder or use it normally All Other Systems: Reviewed and Negative Allergies Coded Allergies: No Known Allergies (Unverified , 07/26/13) Medications Current Inpatient Medications Medications (Trade) Dose Ordered Sig/Brittany Route Start Time Stop Time Status Last Admin Dose Admin Acetaminophen (Tylenol Tab) 650 mg Q4H PRN PO 06/19/17 19:15 07/19/17 19:14 Al Hydrox/Mg Hydrox/Simethicone (Maalox Max Susp) 15 ml Q4H PRN PO 06/19/17 19:15 07/19/17 19:14 Magnesium Hydroxide (Milk Of Magnesia Susp) 30 ml Q12H PRN PO 06/19/17 19:15 07/19/17 19:14 Ondansetron HCl (Zofran Inj) 4 mg Q6H PRN IV 06/19/17 19:15 07/19/17 19:14 Nitroglycerin (Nitrostat Tab) 0.4 mg UD PRN SL 06/19/17 19:15 07/19/17 19:14 Morphine Sulfate (MoRPHine SULFATE INJ) 2 mg Q30M PRN IV 06/19/17 19:15 07/03/17 19:14 Polyethylene (Miralax Powder Packet) 17 gm DAILY PRN PO 06/19/17 19:15 07/19/17 19:14 Albuterol/ Ipratropium (Duoneb) 3 ml QIDR INH 06/19/17 20:00 07/19/17 19:59 06/20/17 11:38 3 ML Albuterol/ Ipratropium (Duoneb) 3 ml Q4H PRN INH 06/19/17 19:15 07/19/17 19:14 Levofloxacin 750 mg/Prmx 150 ml @ 100 mls/hr Q24H IV 06/20/17 18:00 06/26/17 17:59 Hydralazine HCl (HydrALAZINE INJ) 10 mg Q6H PRN IV. 06/19/17 19:15 07/19/17 19:14 Metoprolol Tartrate (Lopressor Iv) 5 mg Q6H PRN IV 06/19/17 19:30 07/19/17 19:29 Aspirin (Aspirin Chew) 81 mg DAILY PO 06/20/17 09:00 5/11/18 08:59 06/20/17 07:45 81 MG Atorvastatin Calcium (Lipitor Tab) 80 mg QAM PO 06/20/17 09:00 07/20/17 08:59 06/20/17 07:45 80 MG Heparin Sodium/ Dextrose 500 ml @ 24 mls/hr [id number] IV 06/19/17 21:15 07/19/17 21:14 06/19/17 21:40 24 MLS/HR Physical Exam Vital Signs Past 12 Hours Date Time Temp Pulse Resp B/P (MAP) Pulse Ox O2 Delivery O2 Flow Rate FiO2 06/20/17 11:38 75 16 96 Room Air 06/20/17 11:27 37.5 64 19 141/91 (108) 96 Room Air 06/20/17 08:00 97 Room Air 06/20/17 07:48 36.7 57 18 178/81 (113) 97 06/20/17 07:09 78 18 96 Room Air 06/20/17 04:00 Room Air 06/20/17 03:40 36.8 66 20 152/92 (112) 94 Room Air 06/19/17 23:59 Room Air Constitutional: General Apperance: heathly-appearing Level of Distress: NAD Psychiatric: Mental Status: active & alert Head: normocephalic Eyes: EOM: EOMI ENMT: normal ENT inspection, hearing grossly normal Neck: supple, no masses Lungs: Respiratory effort: no dyspnea, good air movement Auscultation: no wheezing, rales/crackles on the left, rales/crackles on the right Cardiovascular: Heart Auscultation: no rubs, no gallops, II/ MILAN, II/ WSM, irregular rate rhythm Peripheral Pulses: Bruits: none appreciated Abdomen: Bowel Sounds: normal Inspection & Palpation: soft, no tenderness, guarding & rebound, no masses Musculoskeletal: pertinent finding (He cannot lift his right arm very well without assisting with his left, 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) Extremities: no edema Neurologic: Cranial Nerves: grossly intact Sensation: grossly intact Data Laboratory Results: Last 24 Hours Test 06/19/17 16:34 06/19/17 17:30 06/20/17 00:18 06/20/17 03:30 White Blood Count 6.41 K/uL 4.87 K/uL Red Blood Count 4.04 M/uL 3.96 M/uL Hemoglobin 12.4 g/dL 12.0 g/dL Hematocrit 37.2 % 36.1 % Mean Corpuscular Volume 92.1 fL 91.2 fL Mean Corpuscular Hemoglobin 30.7 pg 30.3 pg Mean Corpuscular Hemoglobin Concent 33.3 g/dl 33.2 g/dl Platelet Count 186 K/uL 174 K/uL Mean Platelet Volume 8.9 fL 8.7 fL Neutrophils (%) (Auto) 84.2 % Lymphocytes (%) (Auto) 6.6 % Monocytes (%) (Auto) 8.0 % Eosinophils (%) (Auto) 0.5 % Basophils (%) (Auto) 0.5 % Neutrophils # (Auto) 5.41 K/uL Lymphocytes # (Auto) 0.42 K/uL Monocytes # (Auto) 0.51 K/uL Eosinophils # (Auto) 0.03 K/uL Basophils # (Auto) 0.03 K/uL RDW Standard Deviation 47.3 fL 46.5 fL RDW Coefficient of Variation 13.9 % 13.8 % Immature Granulocyte % (Auto) 0.2 % Immature Granulocyte # (Auto) 0.01 K/uL Prothrombin Time 12.0 SECONDS Prothromb Time International Ratio 1.1 Activated Partial Thromboplast Time 33.8 SECONDS 47.4 SECONDS Partial Thromboplastin Ratio 1.3 1.8 Sodium Level 133 mmol/L 132 mmol/L Potassium Level 4.2 mmol/L 4.1 mmol/L Chloride Level 101 mmol/L 101 mmol/L Carbon Dioxide Level 24 mmol/L 24 mmol/L Anion Gap 8.0 mmol/L 7.0 mmol/L Blood Urea Nitrogen 22 mg/dl 22 mg/dl Creatinine 1.34 mg/dl 1.27 mg/dl Estimated GFR () 58.0 61.9 Estimated GFR (Non- 50.0 53.4 BUN/Creatinine Ratio 16.1 17.5 Random Glucose 98 mg/dl 84 mg/dl Calcium Level 8.5 mg/dl 8.7 mg/dl Magnesium Level 2.0 mg/dl Total Bilirubin 0.8 mg/dl Direct Bilirubin 0.3 mg/dl Aspartate Amino Transf (AST/SGOT) 18 U/L Alanine Aminotransferase (ALT/SGPT) 20 U/L Alkaline Phosphatase 104 U/L Troponin I 0.054 ng/ml 0.063 ng/ml Pro-B-Type Natriuretic Peptide > 69818 pg/ml Total Protein 7.3 gm/dl Albumin 3.0 gm/dl Thyroid Stimulating Hormone (TSH) 0.787 uIu/ml Urine Color DK YELLOW Urine Appearance CLOUDY Urine pH 5.5 Urine Specific [place] 1.019 Urine Protein 3+ Urine Glucose (UA) NEG Urine Ketones NEG Urine Occult Blood 3+ Urine Nitrite NEG Urine Bilirubin NEG Urine Urobilinogen NEG Urine Leukocyte Esterase MODERATE Urine WBC (Auto) >30 /hpf Urine RBC (Auto) >30 /hpf Urine Hyaline Casts (Auto) 1-5 /lpf Urine Epithelial Cells (Auto) 5-10 /lpf Urine Bacteria (Auto) NEG Creatine Kinase MB 0.9 ng/ml Creatine Kinase MB Ratio Est Creatinine Clear Calc Drug Dose 46.4 ml/min Estimated Average Glucose 97 mg/dl Hemoglobin A1c 5.0 % Triglycerides Level 49 mg/dl Cholesterol Level 101 mg/dl HDL Cholesterol 58 mg/dl LDL Cholesterol, Calculated 33 mg/dl VLDL Cholesterol, Calculated 10 mg/dl Cholesterol/HDL Ratio 1.7 Test 06/20/17 08:26 Creatine Kinase MB 0.6 ng/ml Creatine Kinase MB Ratio Troponin I 0.048 ng/ml Imaging: Chest x-ray shows cardiomegaly and what appears to be congestive heart failure signs EKG: Atrial fibrillation 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 The left ventricular ejection fraction is 35-40%, he has severe aortic stenosis and mild to moderate aortic insufficiency as well as mild mitral regurgitation. Assessment & Plan 1. Aortic stenosis: He has severe aortic stenosis, to the point where he likely will need valve replacement. I do not know how long this has been known , it evidently was identified in [place] relatively recently, possibly before that as we do not have records. In the past he has refused further evaluation. I discussed that with him, he told me that he was not afraid to and I explained to him that it would be a slow process but would get progressively worse. I recommended catheterization if he is interested in further treatment which would involve some type of valve replacement. He is going to think about it and we can do the catheterization here if he would like. His niece was present during the discussion and would like him to proceed. 2. Atrial fibrillation: I do not know how long he has had atrial fibrillation, it could be recent or could be long-standing. His rate is well controlled and he is not aware of it. He is now on an anticoagulant but was not as an outpatient. I agree with the use of heparin now, we should switch him to an oral anticoagulant and he should be on long-term anticoagulation. Rate control does not seem to be an issue at rest, we may have to evaluate that with exertion. 3. Cardiomyopathy: He has at least a moderate cardiomyopathy with ejection fraction 35-40%. This may be related to his aortic stenosis, however he has wall motion abnormalities and conduction abnormalities. We should exclude ischemic heart disease as a cause which we can identify at catheterization. Unless he wants to proceed with further evaluation or intervention I do not think there is any role for noninvasive testing. 4. Right arm weakness and dysarthria: His niece reports that his speech is much more difficult to understand over the last 6-12 months and he notes difficulty using his arm over that same period of time. Although he attributes this to some type of shoulder injury I am concerned that he could have had a stroke. I am going to get a CT scan to see whether he has an old stroke which would be helpful to know. Thank you for allowing me to participate in his care.
--- NOTE | 2017-06-20 15:47 | Hospitalist Progress Note ---
Hospitalist Progress Note Date of Service Jun 20, 2017. (Jessica Nagel ., PA-C) Subjective Pt evaluation today including: conversation w/ patient, conversation w/ family (niece at bedside), physical exam, chart review, lab review, review of studies, conversation w/ furniture rental consultant (cardiology), review of inpatient medication list Pain: None PO Intake: NPO Voiding: arambula catheter in place (chronic) The patient reports feeling well. He states he has intermittent left sided chest pressure, but denies any currently. He denies any shortness of breath. He has had a productive cough recently but this seems improved. He denies any previous cardiac history to his knowledge, but states he has had high blood pressure in the past. He denies any current medications at home except for Aleve. He states he had a history of prediabetes at one point but his A1c is normal now. He also notes a history of colon cancer that was diagnosed in 2004. He had a colon resection at that time and did not require any chemo/ radiation. He has a h/o chronic urinary retention w/chronic Arambula. The patient is NPO at the time of my visit and is hungry. 1 day prior to arrival, he had poor appetite and ate very little. The patient denies fevers, chills, sweats, chest pain, palpitations, claudication, wheezing, shortness of breath, nausea, vomiting, abdominal pain, dysuria, hematuria, paralysis, weakness, numbness and tingling. Additional Comments: See HPI for pertinent positives and negatives. All other systems reviewed and negative. (Jessica Nagel ., PA-C) Objective Vital Signs Date Time Temp Pulse Resp B/P (MAP) Pulse Ox O2 Delivery O2 Flow Rate FiO2 06/20/17 12:00 97 Room Air 06/20/17 11:38 75 16 96 Room Air 06/20/17 11:27 37.5 64 19 141/91 (108) 96 Room Air 06/20/17 08:00 97 Room Air 06/20/17 07:48 36.7 57 18 178/81 (113) 97 06/20/17 07:09 78 18 96 Room Air 06/20/17 04:00 Room Air 06/20/17 03:40 36.8 66 20 152/92 (112) 94 Room Air 06/19/17 23:59 Room Air 06/19/17 23:33 36.6 59 18 132/79 (96) 96 Room Air 06/19/17 22:07 37.6 67 20 131/81 96 Room Air 06/19/17 19:59 37.5 74 22 148/96 98 06/19/17 19:24 74 22 148/96 98 Room Air 06/19/17 18:30 76 31 149/100 98 Room Air 06/19/17 17:18 83 29 145/97 94 Room Air 06/19/17 17:07 75 06/19/17 15:50 37.5 93 20 121/79 100 Room Air (Jessica Nagel ., PA-C) Physical Exam Notes: General appearance: Well-developed, well-nourished, no apparent distress Head: Normocephalic, atraumatic Eyes: Normal inspection, PERRL, EOMI ENT: +Edentulous. Normal ENT inspection, hearing grossly normal, pharynx normal Neck: Supple, no JVD, trachea midline Respiratory/Chest: +Decreased breath sounds. Lungs clear to auscultation, no respiratory distress Cardiovascular: +Irregularly irregular, rate controlled. Systolic murmur. No gallop Abdomen/GI: Normal bowel sounds, non-tender, soft Extremities/Musculoskeletal: Normal inspection, no calf tenderness, no pedal edema Neurological/Psych: Alert, normal mood/affect, oriented x 3 Skin: Normal color, warm/dry, no rash (Jessica Nagel ., PA-C) Laboratory Results Last 24 Hours Test 06/19/17 16:34 06/19/17 17:30 06/20/17 00:18 06/20/17 03:30 White Blood Count 6.41 K/uL 4.87 K/uL Red Blood Count 4.04 M/uL 3.96 M/uL Hemoglobin 12.4 g/dL 12.0 g/dL Hematocrit 37.2 % 36.1 % Mean Corpuscular Volume 92.1 fL 91.2 fL Mean Corpuscular Hemoglobin 30.7 pg 30.3 pg Mean Corpuscular Hemoglobin Concent 33.3 g/dl 33.2 g/dl Platelet Count 186 K/uL 174 K/uL Mean Platelet Volume 8.9 fL 8.7 fL Neutrophils (%) (Auto) 84.2 % Lymphocytes (%) (Auto) 6.6 % Monocytes (%) (Auto) 8.0 % Eosinophils (%) (Auto) 0.5 % Basophils (%) (Auto) 0.5 % Neutrophils # (Auto) 5.41 K/uL Lymphocytes # (Auto) 0.42 K/uL Monocytes # (Auto) 0.51 K/uL Eosinophils # (Auto) 0.03 K/uL Basophils # (Auto) 0.03 K/uL RDW Standard Deviation 47.3 fL 46.5 fL RDW Coefficient of Variation 13.9 % 13.8 % Immature Granulocyte % (Auto) 0.2 % Immature Granulocyte # (Auto) 0.01 K/uL Prothrombin Time 12.0 SECONDS Prothromb Time International Ratio 1.1 Activated Partial Thromboplast Time 33.8 SECONDS 47.4 SECONDS Partial Thromboplastin Ratio 1.3 1.8 Sodium Level 133 mmol/L 132 mmol/L Potassium Level 4.2 mmol/L 4.1 mmol/L Chloride Level 101 mmol/L 101 mmol/L Carbon Dioxide Level 24 mmol/L 24 mmol/L Anion Gap 8.0 mmol/L 7.0 mmol/L Blood Urea Nitrogen 22 mg/dl 22 mg/dl Creatinine 1.34 mg/dl 1.27 mg/dl Estimated GFR () 58.0 61.9 Estimated GFR (Non- 50.0 53.4 BUN/Creatinine Ratio 16.1 17.5 Random Glucose 98 mg/dl 84 mg/dl Calcium Level 8.5 mg/dl 8.7 mg/dl Magnesium Level 2.0 mg/dl Total Bilirubin 0.8 mg/dl Direct Bilirubin 0.3 mg/dl Aspartate Amino Transf (AST/SGOT) 18 U/L Alanine Aminotransferase (ALT/SGPT) 20 U/L Alkaline Phosphatase 104 U/L Troponin I 0.054 ng/ml 0.063 ng/ml Pro-B-Type Natriuretic Peptide > 03895 pg/ml Total Protein 7.3 gm/dl Albumin 3.0 gm/dl Thyroid Stimulating Hormone (TSH) 0.787 uIu/ml Urine Color DK YELLOW Urine Appearance CLOUDY Urine pH 5.5 Urine Specific [place] 1.019 Urine Protein 3+ Urine Glucose (UA) NEG Urine Ketones NEG Urine Occult Blood 3+ Urine Nitrite NEG Urine Bilirubin NEG Urine Urobilinogen NEG Urine Leukocyte Esterase MODERATE Urine WBC (Auto) >30 /hpf Urine RBC (Auto) >30 /hpf Urine Hyaline Casts (Auto) 1-5 /lpf Urine Epithelial Cells (Auto) 5-10 /lpf Urine Bacteria (Auto) NEG Creatine Kinase MB 0.9 ng/ml Creatine Kinase MB Ratio Est Creatinine Clear Calc Drug Dose 46.4 ml/min Estimated Average Glucose 97 mg/dl Hemoglobin A1c 5.0 % Triglycerides Level 49 mg/dl Cholesterol Level 101 mg/dl HDL Cholesterol 58 mg/dl LDL Cholesterol, Calculated 33 mg/dl VLDL Cholesterol, Calculated 10 mg/dl Cholesterol/HDL Ratio 1.7 Test 06/20/17 08:26 Creatine Kinase MB 0.6 ng/ml Creatine Kinase MB Ratio Troponin I 0.048 ng/ml (Jessica Nagel, JAYLAN) Diagnostic Results Echocardiogram: Interpretation Summary * Name: JAGDEEP NOLASCO Study Date: 06/20/2017 07:35 AM BP: 152/92 mmHg * Patient Location: [facility]\S\38\S\2 HR: 69 * : 1935 (M/d/yyyy) Gender: Male Height: 66 in * Age: 81 yrs Ethnicity: CA Weight: 164 lb * Ordering Physician: Mitzy Rosas * Referring Physician: Self, Referred * Performed By: Ashanti Gaitan, [facility] * * Reason For Study: A-FIB * BSA: 1.8 m2 * -- Conclusions -- * 1. Normal LV size. Mild concentric LVH. * 2. LVEF 35-40%. Mid to apical septum akinetic. Severe inferior hypokinesis. Moderate inferolateral hypokinesis. * 3. Normal RV size and function. * 4. Severe calcific aortic stenosis. Mild to moderate aortic regurgitation. * 5. Mild mitral regurgitation. * 6. Moderate pulmonary hypertension. Est PASP 55-60 mmHg. Normal RA pressures. * 7. Grade II diastolic dysfunction. * 8. No prior studies for comparison. Procedure Details * A complete two-dimensional transthoracic echocardiogram was performed (2D, M-mode, Doppler and color flow Doppler). Left Ventricle * The left ventricle is grossly normal size. * There is mild concentric left ventricular hypertrophy. * Ejection Fraction = 35-40%. * Mid to apical septum akinetic. Severe inferior hypokinesis. Moderate inferolateral hypokinesis. Right Ventricle * The right ventricle is grossly normal size. * The right ventricular systolic function is normal as assessed by tricuspid annular plane systolic excursion (TAPSE) (normal >1.5 cm). Atria * The left atrium is mildly dilated. * Borderline right atrial enlargement. * No ASD detected; PFO is not assessed. Mitral Valve * Posterior leaflet restricted * There is mild mitral regurgitation. Tricuspid Valve * There is trace tricuspid regurgitation. * Right ventricular systolic pressure is elevated at 50-60mmHg. Aortic Valve * Aortic valve calcified, thickned, restricted * Severe valvular aortic stenosis. * Mild to moderate aortic regurgitation. Pulmonic Valve * The pulmonary valve is inadequately visualized, but the Doppler data is adequate for interpretation. * There is no pulmonic valvular stenosis. * Mild pulmonic valvular regurgitation. Great Vessels * The aortic root and proximal ascending aorta are normal sized. Pericardium/Pleural * There is no pericardial effusion. Great Vessels * Normal inferior vena cava size and collapsability with sniff indicates a normal right atrial pressure of 3 mmHg Left Ventricular Diastolic Function * Diastolic dysfunction, Grade II, consistent with elevated left atrial pressure. (Jessica Nagel ., PA-C) Assessment and Plan 81 y/o male with a history of HTN, prediabetes, colon cancer s/p resection, and chronic urinary retention w/chronic Arambula who presented to the ED on 06/19 with cough and decreased appetite. Atrial fibrillation, unknown if new onset or previous history--stable, rate controlled -Admit to telemetry. No acute events overnight. Pt in rate controlled a-fib with HR 50s-70s. -TSH, potassium, magnesium WNL -Continue heparin drip for now, consider novel oral agents following cath -Echo shows EF 35-40%. Mid to apical septum akinesis. Severe inferior hypokinesis. Moderate inferolateral hypokinesis. Severe calcified aortic stenosis. Moderate pulmonary HTN with PASP 55-60 mmHg. Grade II diastolic dysfunction -Cardiology consulted, appreciate recs: Spoke to Dr. Waters. Unknown chronicity of a-fib. Continue heparin drip for now. Severe , will likely need replaced. Recommend cardiac cath for now. Will order head CT to assess for possible old stroke due to slurred speech and RUE weakness x 6-12 months -Pt agreeable to cath, NPO after midnight Chest pain--resolved -Troponin peaked at 0.063, trending down. Likely secondary to demand ischemia -Lipid panel WNL. Total cholesterol 101, HDL 58, non-HDL 43 -Will d/c empiric Lipitor due to low cholesterol in elderly pt, increased ICH risk -HgbA1c 5.0 Multifocal PNA--stable -Continue Levaquin 750 mg IV qd, day #2 -DuoNebs QID and PRN for SOB/wheezing -BCx pending, sputum cx if able to obtain -MRSA swab negative HTN--no meds at home per pt -Hydralazine 10 mg IV q6h prn SBP >180 Mild hyponatremia--stable, asymptomatic -Continue to monitor H/o colon cancer s/p resection--noted Urinary retention w/ indwelling Arambula--noted DVT prophylaxis -Heparin drip Code Status -Level V, DO NOT RESUSCITATE Dispo -From [place], in town visiting des. Had lived alone -Planning for [facility] (Jessica Nagel ., JAYLAN) I personally interviewed and examined the patient. I agree with history of present illness and physical exam mentioned above, I also performed my own history taking and examination. Past medical history and review of system has been obtained by myself I reviewed all pertinent labs and studies Reviewed current medications I discussed and formulated of the assessment and plan mentioned above. Please refer to the Summary mentioned below. 81-year-old man with history of colon cancer status post resection, chronic urinary retention with chronic indwelling Arambula catheter and hypertension presented to the ED with cough, chest pain and shortness of breath. He was found to have atrial fibrillation patient does not know if it is new or old, 2D echo showed ejection fraction of 35-40% with hypokinesia and aortic stenosis , troponin was borderline elevated, patient had chest pain and imaging studies showed multifocal pneumonia he was started on Levaquin IV and bronchodilators. Also started on heparin drip by bait painter, cardiology consult appreciated and recommended cardiac catheterization when stable. General Appearance: not in acute distress Eyes: normal Sclerae, extraocular muscle intact ENT: hearing grossly normal Neck: supple Respiratory/Chest: normal air entry bilateral ,no respiratory distress, no accessory muscle use Cardiovascular: irregular irregularity with pansystolic murmur Abdomen: non tender, soft, no masses Extremities: no edema musculoskeletal: no significant swelling or inflammation in any joint Neurologic/Psychiatric: Awake alert oriented times place and person moves all extremities sensation intact cranial nerves II-12 appear to be intact Skin: normal color, warm/dry, no rash Nichole Valentine MD, [facility] hospitalist group (Nichole Alanis MD)
--- NOTE | 2017-06-20 16:37 | DIAGNOSTIC IMAGING REPORT ---
HEAD COMBO CLINICAL HISTORY: Atrial fibrillation. Right arm weakness. COMPARISON STUDY: No previous studies for comparison. TECHNIQUE: Axial images of the head were obtained before and after intravenous administration 94 cc Optiray 320 IV. FINDINGS: No acute intracranial hemorrhage, midline shift or mass effect is present. There is moderate atrophy with ventricular and sulcal enlargement. The basilar cisterns are patent. There are no extra axial collections. No intracranial mass or pathologic enhancement is present. Note is made of a 1.4 cm old lacunar infarct within the left cerebellar hemisphere. An 8 mm hypodensity within left basal ganglia could reflect an old lacunar infarct or prominent perivascular space. There are no CT findings to suggest acute dural sinus thrombosis or acute territorial infarct. There is mild mucosal thickening of the sinuses with a small left maxillary sinus air-fluid level. IMPRESSION: 1. No acute intracranial findings. 2. No intracranial mass or pathologic enhancement. 3. Moderate atrophy and moderate small vessel disease. 4. 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 5. Mild sinus mucosal thickening and a small left maxillary sinus air-fluid level. Electronically signed by: Willard Malloy M.D. 06/20/2017 4:36 PM Dictated Date/Time: 06/20/2017 4:32 PM
[2017-06-20] MEDS ORDERED: LEVOFLOXACIN / D5W 750 MG in PREMIXED IN D5W 150 ML IV SCH (18:00)
[2017-06-20] MEDS: HEPARIN 25,000 UNIT/500ML D5W 500 ML IV SCH (18:05)
[2017-06-20] MEDS: ACETYLCYSTEINE 600 MG CAP PO SCH (20:45)
[2017-06-21] VITALS (21 sets, daily range): BP systolic 107–173; BP diastolic 68–107; PULSE 62–78; TEMP 36.4–37.3; O2SAT 94–100
[2017-06-21 06:54] LABS: HEMATOCRIT 35.4 % (42-52); HEMOGLOBIN 11.8 g/dL (14.0-18.0); MEAN CELL VOLUME 90.5 fL (80-100); MEAN CORPUSCULAR HEMOGLOBIN 30.2 pg (25-34); MEAN CORPUSCULAR HGB CONC 33.3 g/dl (32-36); MEAN PLATELET VOLUME 8.5 fL (7.4-10.4); PLATELET COUNT 163 K/uL (130-400); RED CELL DISTRIBUTION WIDTH CV 13.8 % (11.5-14.5); RED CELL DISTRIBUTION WIDTH SD 45.8 fL (36.4-46.3); WHITE BLOOD COUNT 3.49 K/uL (4.8-10.8)
[2017-06-21] MEDS: ALBUT/IPRATROP 3MG/0.5MG NEB 3 ML VIAL INH SCH ×4 (07:00→19:14)
[2017-06-21 07:22] LABS: CALCIUM 8.5 mg/dl (8.5-10.1); CREATININE 1.24 mg/dl (0.60-1.40); POTASSIUM 3.6 mmol/L (3.5-5.1)
[2017-06-21] MEDS: ASPIRIN 81 MG CHEW PO SCH (08:07)
[2017-06-21] MEDS: ACETYLCYSTEINE 600 MG CAP PO SCH ×2 (08:08→20:30)
--- NOTE | 2017-06-21 09:51 | Hospitalist Progress Note ---
Hospitalist Progress Note Date of Service Jun 21, 2017. (Jessica Nagel .JAYLAN) Subjective Pt evaluation today including: conversation w/ patient, conversation w/ family (at bedside), physical exam, chart review, lab review, review of inpatient medication list Pain: None PO Intake: NPO Voiding: arambula catheter in place (chronic) The patient reports feeling well. His main complaint currently is that he is hungry as he is NPO for cath today. He denies any chest pressure or pain at this time and denies shortness of breath. He does still report a productive cough. The patient denies fevers, chills, sweats, chest pain, palpitations, claudication, wheezing, shortness of breath, nausea, vomiting, abdominal pain, dysuria, hematuria, urinary retention, paralysis, weakness, numbness and tingling. Additional Comments: See HPI for pertinent positives and negatives. All other systems reviewed and negative. (Jessica Nagel ., JAYLAN) Objective Vital Signs Date Time Temp Pulse Resp B/P (MAP) Pulse Ox O2 Delivery O2 Flow Rate FiO2 06/21/17 07:21 36.6 65 20 144/84 (104) 96 Room Air 06/21/17 07:02 67 18 96 Room Air 06/21/17 04:00 Room Air 06/21/17 03:17 36.9 63 18 107/68 (81) 94 Room Air 06/20/17 23:59 Room Air 06/20/17 23:56 37.1 57 20 136/74 (94) 96 Room Air 06/20/17 20:22 37.6 65 18 147/87 (107) 98 Room Air 06/20/17 20:00 98 Room Air 06/20/17 19:04 76 16 98 Room Air 06/20/17 16:10 36.8 67 20 170/97 (121) 99 Room Air 06/20/17 16:00 99 Room Air 06/20/17 12:00 97 Room Air 06/20/17 11:38 75 16 96 Room Air 06/20/17 11:27 37.5 64 19 141/91 (108) 96 Room Air (Jessica Nagel PA-C) Physical Exam Notes: General appearance: Well-developed, well-nourished, no apparent distress Head: Normocephalic, atraumatic Eyes: Normal inspection, PERRL, EOMI ENT: +Edentulous. Normal ENT inspection, hearing grossly normal, pharynx normal Neck: Supple, no JVD, trachea midline Respiratory/Chest: +Decreased breath sounds. Lungs clear to auscultation, no respiratory distress Cardiovascular: +Irregularly irregular, rate controlled. Systolic murmur. No gallop Abdomen/GI: Normal bowel sounds, non-tender, soft Extremities/Musculoskeletal: Normal inspection, no calf tenderness, no pedal edema Neurological/Psych: Alert, normal mood/affect, oriented x 3 Skin: Normal color, warm/dry, no rash (Jessica Nagel ., PA-C) Laboratory Results Last 24 Hours Test 06/21/17 06:31 White Blood Count 3.49 K/uL Red Blood Count 3.91 M/uL Hemoglobin 11.8 g/dL Hematocrit 35.4 % Mean Corpuscular Volume 90.5 fL Mean Corpuscular Hemoglobin 30.2 pg Mean Corpuscular Hemoglobin Concent 33.3 g/dl RDW Standard Deviation 45.8 fL RDW Coefficient of Variation 13.8 % Platelet Count 163 K/uL Mean Platelet Volume 8.5 fL Activated Partial Thromboplast Time 50.0 SECONDS Partial Thromboplastin Ratio 1.9 Sodium Level 131 mmol/L Potassium Level 3.6 mmol/L Chloride Level 100 mmol/L Carbon Dioxide Level 24 mmol/L Anion Gap 7.0 mmol/L Blood Urea Nitrogen 21 mg/dl Creatinine 1.24 mg/dl Est Creatinine Clear Calc Drug Dose 43.6 ml/min Estimated GFR () 63.7 Estimated GFR (Non- 54.9 BUN/Creatinine Ratio 16.6 Random Glucose 88 mg/dl Calcium Level 8.5 mg/dl (Jessica Nagel ., PA-C) Diagnostic Results Reviewed EKG and agree with interpretation as follows: 65 bpm, atrial fibrillation, RBBB, left anterior fascicular block (Jessica Nagel ., PA-C) Assessment and Plan 81 y/o male with a history of HTN, prediabetes, colon cancer s/p resection, and chronic urinary retention w/chronic Arambula who presented to the ED on 06/19 with cough and decreased appetite. Atrial fibrillation, unknown if new onset or previous history--stable, rate controlled -Admit to telemetry. No acute events overnight. Pt in rate controlled a-fib with HR 50s-760s. -TSH, potassium, magnesium WNL -Continue heparin drip for now, consider novel oral agents following cath -Echo shows EF 35-40%. Mid to apical septum akinesis. Severe inferior hypokinesis. Moderate inferolateral hypokinesis. Severe calcified aortic stenosis. Moderate pulmonary HTN with PASP 55-60 mmHg. Grade II diastolic dysfunction -Cardiology consulted, appreciate recs: Spoke to Dr. Waters. Unknown chronicity of a-fib. Continue heparin drip for now. Severe , will likely need replaced. Recommend cardiac cath for now. Will order head CT to assess for possible old stroke due to slurred speech and RUE weakness x 6-12 months -NPO, cardiac cath today Chest pain--resolved -Troponin peaked at 0.063, trending down. Likely secondary to demand ischemia -Lipid panel WNL. Total cholesterol 101, HDL 58, non-HDL 43 -Will d/c empiric Lipitor due to low cholesterol in elderly pt, increased ICH risk -HgbA1c 5.0 Combined systolic/diastolic CHF--stable -Negative fluid balance here Multifocal PNA--stable -Continue Levaquin 750 mg IV q48h (renal dosing), day #3 -DuoNebs QID and PRN for SOB/wheezing -BCx NGTD, sputum culture pending -MRSA swab negative HTN--no meds at home per pt -Hydralazine 10 mg IV q6h prn SBP >180 Mild hyponatremia--stable, asymptomatic -Continue to monitor H/o colon cancer s/p resection--noted Urinary retention w/ indwelling Arambula--noted DVT prophylaxis -Heparin drip Code Status -Level V, DO NOT RESUSCITATE Dispo -From [place], in town visiting des. Had lived alone -PT eval pending, OT recommends inpt rehab -Planning for [facility], case management following (Jessica Nagel ., PAFaithC) I personally interviewed and examined the patient. I agree with history of present illness and physical exam mentioned above, I also performed my own history taking and examination. Past medical history and review of system has been obtained by myself I reviewed all pertinent labs and studies Reviewed current medications I discussed and formulated of the assessment and plan mentioned above. Please refer to the Summary mentioned below. 81-year-old man with history of colon cancer status post resection, chronic urinary retention with chronic indwelling Arambula catheter and hypertension presented to the ED with cough, chest pain and shortness of breath. He was found to have atrial fibrillation patient does not know if it is new or old, 2D echo showed ejection fraction of 35-40% with hypokinesia and aortic stenosis , troponin was borderline elevated, patient had chest pain and imaging studies showed multifocal pneumonia he was started on Levaquin IV and bronchodilators. Also started on heparin drip by cheese cook, cardiology consult appreciated and recommended cardiac catheterization, currently patient is n.p.o. for cardiac catheterization. Feeling much better. General Appearance: not in acute distress Eyes: normal Sclerae, extraocular muscle intact ENT: hearing grossly normal Neck: supple Respiratory/Chest: normal air entry bilateral ,no respiratory distress, no accessory muscle use Cardiovascular: irregular irregularity with pansystolic murmur Abdomen: non tender, soft, no masses Extremities: no edema musculoskeletal: no significant swelling or inflammation in any joint Neurologic/Psychiatric: Awake alert oriented times place and person moves all extremities sensation intact cranial nerves II-12 appear to be intact Skin: normal color, warm/dry, no rash Nichole Valentine MD, [facility] hospitalist group (Nichole Alanis MD)
--- NOTE | 2017-06-21 10:43 | Clinical Documentation Query ---
CLINICAL DOCUMENTATION QUERY Dr. NOAH HILL, In your clinical opinion is this patient being managed for: ( ) Acute combined systolic and diastolic CHF (x ) Not Agree ( ) Other explanation of clinical findings (Please Explain) ( ) Unable to determine (Please Define) ( ) Need to Discuss The medical record reflects the following clinical findings, treatment, and risk factors. Clinical Indicators: 81 yo male presenting with a cough productive for white milky sputum. ER note indicates pt with decreased breath sounds and wheezing throughout and +1 pitting edema BLE. ProBNP >85709. CXR: multifocal bilateral airspace opacities. Is present pulmonary edema and/or multifocal pneumonia. H/P possible CHF. ECHO with EF 35-40% with grade II diastolic dysfunction. Treatment: ECHO, cardiology consult, IV metoprolol prn, cardiac enzymes, ECHO, IV heparin, tele monitoring, IV lasix x 1 dose, I/O, daily wts Risk Factors: age, A fib ? new onset, pneumonia, aortic stenosis, cardiomyopathy, hx CVA, HTN Please clarify and document your clinical opinion in the progress notes and discharge summary. Terms such as "probable", "suspected", "likely", "questionable", "possible", or "still to be ruled out" are acceptable. IF IN AGREEMENT, YOU MUST DOCUMENT ABOVE DIAGNOSTIC STATEMENT IN DAILY PROGRESS NOTES AND DISCHARGE SUMMARY. This document is not part of the patient's record. Thank You, Katia Ponce, RN [phone]
--- NOTE | 2017-06-21 10:45 | Clinical Documentation Query ---
CLINICAL DOCUMENTATION QUERY Ms. MONTEZ, In your clinical opinion is this patient being managed for: ( ) Acute combined systolic and diastolic CHF ( x ) Not Agree. Not an acute exacerbation, has not received any treatment since admission and is maintaining negative fluid balance. ( ) Other explanation of clinical findings (Please Explain) ( ) Unable to determine (Please Define) ( ) Need to Discuss The medical record reflects the following clinical findings, treatment, and risk factors. Clinical Indicators: 81 yo male presenting with a cough productive for white milky sputum. ER note indicates pt with decreased breath sounds and wheezing throughout and +1 pitting edema BLE. ProBNP >10275. CXR: multifocal bilateral airspace opacities. Is present pulmonary edema and/or multifocal pneumonia. H/P possible CHF. ECHO with EF 35-40% with grade II diastolic dysfunction. Treatment: ECHO, cardiology consult, IV metoprolol prn, cardiac enzymes, ECHO, IV heparin, tele monitoring, IV lasix x 1 dose, daily wts, I/O Risk Factors: age, A fib ? new onset, pneumonia, aortic stenosis, cardiomyopathy, hx CVA, HTN Please clarify and document your clinical opinion in the progress notes and discharge summary. Terms such as "probable", "suspected", "likely", "questionable", "possible", or "still to be ruled out" are acceptable. IF IN AGREEMENT, YOU MUST DOCUMENT ABOVE DIAGNOSTIC STATEMENT IN DAILY PROGRESS NOTES AND DISCHARGE SUMMARY. This document is not part of the patient's record. Thank You, Katia Ponce RN [phone]
--- NOTE | 2017-06-21 14:27 | Pre Sedation Assessment ---
Pre Sedation Assessment General Date of Sedation: Jun 21, 2017. Vital Signs Past 12 Hours Date Time Temp Pulse Resp B/P (MAP) Pulse Ox O2 Delivery O2 Flow Rate FiO2 06/21/17 12:00 96 Room Air 06/21/17 11:24 36.8 63 16 153/82 (105) 99 Room Air 06/21/17 11:23 78 18 98 Room Air 06/21/17 08:00 96 Room Air 06/21/17 07:21 36.6 65 20 144/84 (104) 96 Room Air 06/21/17 07:02 67 18 96 Room Air 06/21/17 04:00 Room Air 06/21/17 03:17 36.9 63 18 107/68 (81) 94 Room Air Review Cardiovascular: + systolic murmur, + irregularly irregular Lungs: chest non-tender, lungs clear Pre-Sedation Airway Assessment Smoking Status: Former Smoker Hx of Sleep Apnea: No Hx of difficult intubation: No Short Thick Neck: No Thyro-mental Distance: > 3 Finger Breadths Oral Cavity: WNL Mallampati Classification: Class III ASA Classification: Class III Procedure Planning Contraindications for Sedation: None Current Medications Reviewed: Yes Notes The planned sedation has been discussed with the patient. Informed Consent was obtained. I have identified the patient, determined the appropriateness of sedation and have assessed the patient immediately prior to the procedure. All medicine(s) and interventions are by my order.
[2017-06-21] MEDS ORDERED: LIDOCAINE HCL 1% 20 ML VIAL ONE ×2 (14:37→14:54)
[2017-06-21] MEDS ORDERED: FENTANYL CITRATE INJ 50 MCG/1 ML 2 ML VIAL ONE (14:54)
[2017-06-21] MEDS ORDERED: MIDAZOLAM HCL 1 MG/ML 2ML VIAL ONE (14:54)
[2017-06-21] MEDS ORDERED: NiCARDipine HCL INJ 2.5 MG/ML 10 ML AMP ONE (14:54)
[2017-06-21] MEDS ORDERED: NITROGLYCERIN/D5W 100MCG/ML 20ML SYR ONE (14:54)
[2017-06-21] MEDS ORDERED: HEPARIN SOD (PORCINE) 1000 UNIT/ML 10 ML VIAL ONE (14:54)
[2017-06-21] MEDS ORDERED: SODIUM CHLORIDE 0.9% 1000ML 1,000 ML IV SCH (15:36)
--- NOTE | 2017-06-21 15:36 | [facility] Post Operative Brief Note ---
Preliminary Procedure Note Procedure Date Jun 21, 2017. Pre-Procedure Diagnosis Valvular Disease, Cardiomyopathy AUC Score 7 Post-Procedure Diagnosis Severe CAD Procedure(s) Performed Coronary Angiography Dental Receptionist Kris General Accounting Clerk(s) Norberto Estimated Blood Loss 15 Medication(s) Fentanyl, Heparin, Versed, Lidocaine 1% Preliminary Findings Severe disease in dominant distal circumflex (in-stent restenosis), otherwise minimal disease Recommendations Medical therapy and/or Counseling Specimens None Anesthesia Moderate Procedural Complication(s) None Disposition PCU
--- NOTE | 2017-06-21 17:59 | Cardiac Catheterization ---
Procedure Note Procedure Date Jun 21, 2017. Pre-Procedure Diagnosis Valvular Disease, Cardiomyopathy AUC Score 7 Post-Procedure Diagnosis Severe CAD, Normal Intracardiac Pressures Procedure(s) Performed Coronary Angiography, Left Heart Cath, Right Heart Cath, Ultrasound Guided Vascular Access Sloop Captain Kris Prosthetic Dentist(s) Norberto Estimated Blood Loss 15 Medication(s) Fentanyl, Heparin, Nicardipine, Nitroglycerin, Versed, Lidocaine 1% Summary of Findings Indication: New cardiomyopathy, severe aortic stenosis Access: 5 FR right radial artery Catheters: [place] Findings: LM - large caliber vessel, angiographically normal LAD - large caliber vessel, 20-30% proximal disease, mid segment luminal regularities, distal vessel wraps around the apex with widely patent stent with minimal InStent restenoses. Gives off 3 small to moderate caliber diagonals. High 1st diagonal with 60-70% proximal disease Circumflex - large caliber vessel, dominant, 20-30% mid segment disease. Distal segment 99% InStent restenoses prior to takeoff of left PDA which partially fills with MAIKOL 1 antegrade flow. Circumflex gives off 2 small to moderate caliber obtuse marginals with mild diffuse disease. Left PLB with mild disease. RCA - non dominant, small, luminal irregularities Arterial Closure: TR band Summary: 1. Severe single-vessel coronary artery disease - subtotal in-stent occlusion of dominant, distal circumflex prior to left PDA - widely patent distal LAD stent Recommendations: Nonischemic etiology for patient's severe global cardiomyopathy. Refer to tertiary center for evaluation of aortic valve replacement. Continued ASCVD risk factor modification Hemodynamics Rest Ao: 133/77/99 Final Ao: 161/71/103 LV: -- Recommendations valve replacement Specimens None Radiation Exposure (mGy) 1102 Contrast (mls) 30 Fluids (cc crystalloids) 50 Drains None Anesthesia Moderate Procedural Complication(s) None Disposition PCU ACC Data Cardiac Status Clinical evaluation leading to the procedure CAD Presntation: Sx unlikely to be ischemic Anginal Classification: CCS I Heart Failure: Yes, NYHA Class: CCS II Cardiogenic Shock w/in 24Hrs: No Cardiac Arrest w/in 24Hrs: No Imaging studies past 6 months: Yes Stress studies past 6 months: No Closure Device Percutaneous Entry Location: Radial Closure Device: Radial Band Recommendations: valve replacement Intraprocedure Events Significant Dissection: No Perforation: No
[2017-06-21] MEDS ORDERED: NURSING VERBAL MED ORDER ONE (19:15)
[2017-06-22] VITALS (11 sets, daily range): BP systolic 130–185; BP diastolic 68–91; PULSE 54–81; TEMP 36.5–37.2; O2SAT 96–99
[2017-06-22 07:07] LABS: HEMATOCRIT 34.8 % (42-52); MEAN CELL VOLUME 89.7 fL (80-100); MEAN CORPUSCULAR HEMOGLOBIN 30.9 pg (25-34); MEAN CORPUSCULAR HGB CONC 34.5 g/dl (32-36); MEAN PLATELET VOLUME 8.9 fL (7.4-10.4); PLATELET COUNT 167 K/uL (130-400); RED CELL DISTRIBUTION WIDTH CV 13.8 % (11.5-14.5); RED CELL DISTRIBUTION WIDTH SD 45.3 fL (36.4-46.3)
[2017-06-22] MEDS: ALBUT/IPRATROP 3MG/0.5MG NEB 3 ML VIAL INH SCH (07:13)
[2017-06-22 07:17] LABS: PTT PATIENT 34.3 SECONDS (21.0-31.0)
[2017-06-22 07:38] LABS: CALCIUM 8.3 mg/dl (8.5-10.1); CREATININE 1.18 mg/dl (0.60-1.40); POTASSIUM 3.7 mmol/L (3.5-5.1)
[2017-06-22] MEDS: ASPIRIN 81 MG CHEW PO SCH (08:23)
[2017-06-22] MEDS: ACETYLCYSTEINE 600 MG CAP PO SCH (08:23)
--- NOTE | 2017-06-22 09:14 | Hospitalist Progress Note ---
Hospitalist Progress Note Date of Service Jun 22, 2017. (Isabel Lane PA-C) Subjective Pt evaluation today including: conversation w/ patient, conversation w/ family , physical exam, chart review, lab review, review of studies, conversation w/ loss control consultant (cardiology) Pain: None PO Intake: Good Voiding: arambula catheter in place The patient was seen and examined this morning. Pt reports doing well overall except that he has a really coarse cough and is bringing up a lot of thick mucous. He denies fever, chills or sweats. Pt denies acute shortness of breath and is on room air. He has not ambulated much about the avalos unless he is working with PT/OT. His niece, Teresa is present at bedside. Discussion was held regarding cardiac cath and that the patient will eventually need to have aortic valve replacement which he is agreeable to. He typically resides in [place], however has been here with his neice for about 2 months at this point. Pt would prefer to have this surgery back in [place]. We also discussed anticoagulation, and we will check into the cost of eliquis. Discussed small lacunar stroke and possible etiology of afib, however that we cannot say exactly what the cause is. All their questions and concerns were answered. Pt is questioning when he'll be discharged, but understands that a short term rehab stay would be in his best interest and he is agreeable to this. His niece can transport if PT/OT ok with this. Constitutional: + fatigue, No fever, No chills, No sweats Eyes: No redness, No diplopia ENT: No nasal symptoms, No sore throat, No trouble swallowing Respiratory: + see HPI, + cough, + sputum, No wheezing Cardiovascular: No chest pain, No palpitations Abdomen: No pain, No nausea, No vomiting, No diarrhea, No constipation Musculoskeletal: No joint pain, No swelling Neurologic: No weakness, No numbness/tingling Psychiatric: No depression symptoms, No anxiety (Isabel Lane, REMA [place]) Objective Vital Signs Date Time Temp Pulse Resp B/P (MAP) Pulse Ox O2 Delivery O2 Flow Rate FiO2 06/22/17 07:21 37.2 62 18 160/89 (112) 96 06/22/17 07:13 56 18 97 Room Air 06/22/17 04:06 36.5 60 20 161/82 (108) 98 Room Air 06/22/17 04:00 Room Air 06/22/17 00:00 Room Air 06/21/17 23:05 36.4 69 18 162/91 (114) 96 Room Air 06/21/17 21:22 64 20 162/89 (113) 100 Room Air 06/21/17 20:22 69 20 169/84 (112) 97 Room Air 06/21/17 20:00 96 Room Air 06/21/17 19:23 37.3 66 20 165/88 (113) 96 Room Air 06/21/17 19:22 37.3 66 20 165/88 (113) 96 Room Air 06/21/17 19:14 66 18 96 Room Air 06/21/17 18:22 67 20 158/85 (109) 97 Room Air 06/21/17 17:22 73 20 164/87 (112) 95 Room Air 06/21/17 16:52 64 20 170/83 (112) 97 Room Air 06/21/17 16:22 62 20 162/81 (108) 98 Room Air 06/21/17 16:07 62 20 162/81 (108) 98 Room Air 06/21/17 16:07 68 20 170/91 (117) 98 Room Air 06/21/17 16:00 97 Room Air 06/21/17 15:52 36.7 69 20 173/107 (129) 97 Room Air 06/21/17 15:46 82 16 169/91 (117) 95 Room Air 06/21/17 15:31 81 16 156/90 (112) 99 Mask 3 06/21/17 12:00 96 Room Air 06/21/17 11:24 36.8 63 16 153/82 (105) 99 Room Air 06/21/17 11:23 78 18 98 Room Air (Isabel Lane, JAYLAN) Physical Exam General Appearance: WD/WN, no apparent distress Eyes: PERRL, EOMI ENT: hearing grossly normal, pharynx normal Neck: no adenopathy, no JVD Respiratory/Chest: + pertinent finding (on RA, coarse breath sounds throughout , + productive cough, no crackles or wheeze) Cardiovascular: + systolic murmur (grade III/, RUSB), + irregularly irregular Abdomen: normal bowel sounds, non tender, soft Extremities: non-tender, no calf tenderness, + pedal edema (mild, nonpitting BLE) Neurologic/Psychiatric: alert, normal mood/affect, oriented x 3 Skin: normal color, warm/dry (Isabel Lane PA-C) Laboratory Results Last 24 Hours Test 06/22/17 06:17 White Blood Count 4.20 K/uL Red Blood Count 3.88 M/uL Hemoglobin 12.0 g/dL Hematocrit 34.8 % Mean Corpuscular Volume 89.7 fL Mean Corpuscular Hemoglobin 30.9 pg Mean Corpuscular Hemoglobin Concent 34.5 g/dl RDW Standard Deviation 45.3 fL RDW Coefficient of Variation 13.8 % Platelet Count 167 K/uL Mean Platelet Volume 8.9 fL Activated Partial Thromboplast Time 34.3 SECONDS Partial Thromboplastin Ratio 1.3 Sodium Level 135 mmol/L Potassium Level 3.7 mmol/L Chloride Level 105 mmol/L Carbon Dioxide Level 22 mmol/L Anion Gap 8.0 mmol/L Blood Urea Nitrogen 21 mg/dl Creatinine 1.18 mg/dl Est Creatinine Clear Calc Drug Dose 45.8 ml/min Estimated GFR () 67.6 Estimated GFR (Non- 58.3 BUN/Creatinine Ratio 17.7 Random Glucose 86 mg/dl Calcium Level 8.3 mg/dl (Isabel Lane PA-C) Assessment and Plan 81 y/o male with a history of HTN, prediabetes, colon cancer s/p resection, and chronic urinary retention w/chronic Arambula who presented to the ED on 06/19 with cough and decreased appetite. Atrial fibrillation, chronic--stable, rate controlled CAD Hx of cardiac stenting in ~ 2009 - Pt in rate controlled a-fib with HR 70-80 overnight - TSH, potassium, magnesium WNL - Echo shows EF 35-40%. Mid to apical septum akinesis. Severe inferior hypokinesis. Moderate inferolateral hypokinesis. Severe calcified aortic stenosis. Moderate pulmonary HTN with PASP 55-60 mmHg. Grade II diastolic dysfunction - Cardiology consulted, appreciate recs - Likely chronic a-fib. now off heparin gtt. Severe . - S/p cardiac cath on 06/21 - severe single vessel disease, aortic valve to be replaced by tertiary care center. - Heparin gtt off, discussed risk vs benefits of anticoagulation with the patient - will recommend Eliquis 5 mg BID - ask CM to check the cost. Chest pain--resolved -Troponin peaked at 0.063, trending down. Likely secondary to demand ischemia -Lipid panel WNL -Will d/c empiric Lipitor due to low cholesterol in elderly pt, increased ICH risk -HgbA1c 5.0 Combined systolic/diastolic CHF--stable -Negative fluid balance here Multifocal PNA--stable -Continue Levaquin 750 mg IV q48h (renal dosing), day #5 - finish today. - Switch to xopenex QID and PRN for SOB/wheezing - BCx NGTD, sputum culture pending - Add incentive spirometry, flutter, mucinex - Will repeat CXR portable today HTN--no meds at home per pt -Hydralazine 10 mg IV q6h prn SBP >180 Lacuna stroke - CT head completed showing a 1.4 cm old lacunar infarct within the left cerebellar hemisphere - this may explain his URE slight weakness and pt's niece who describes a change in his speech in the past year. - No neurology consult at this time - tx with asa, bp control, anticoagulation and pt/ot Mild hyponatremia--stable, asymptomatic -Continue to monitor H/o colon cancer s/p resection--noted Urinary retention w/ indwelling Arambula--noted DVT prophylaxis: teds, scds, off heparin gtt Code Status: DNR Dispo -From [place], in town visiting niece. Had lived alone- plan d/c to [facility] possible in next 24 hours. (Isabel Lane PA-C) I personally interviewed and examined the patient. I agree with history of present illness and physical exam mentioned above, I also performed my own history taking and examination. Past medical history and review of system has been obtained by myself I reviewed all pertinent labs and studies Reviewed current medications I discussed and formulated of the assessment and plan mentioned above. Please refer to the Summary mentioned below. 81-year-old man with history of colon cancer status post resection, chronic urinary retention with chronic indwelling Arambula catheter and hypertension presented to the ED with cough, chest pain and shortness of breath. He was found to have atrial fibrillation patient does not know if it is new or old, 2D echo showed ejection fraction of 35-40% with hypokinesia and aortic stenosis , troponin was borderline elevated, patient had chest pain and imaging studies showed multifocal pneumonia he was started on Levaquin IV and bronchodilators. Also started on heparin drip by relationship associate, cardiology consult appreciated s/ p cardiac catheterization, showed single vessel disease, results attached below suspected other reason for global hypokinesia will do overnight nocturnal O2 sat study recommended eliquis for anticoagulation needs evaluation for aortic valve replacement General Appearance: not in acute distress Eyes: normal Sclerae, extraocular muscle intact ENT: hearing grossly normal Neck: supple Respiratory/Chest: normal air entry bilateral ,no respiratory distress, no accessory muscle use Cardiovascular: irregular irregularity with pansystolic murmur Abdomen: non tender, soft, no masses Extremities: no edema musculoskeletal: no significant swelling or inflammation in any joint Neurologic/Psychiatric: Awake alert oriented times place and person moves all extremities sensation intact cranial nerves II-12 appear to be intact Skin: normal color, warm/dry, no rash cath results: 1. Severe single-vessel coronary artery disease - subtotal in-stent occlusion of dominant, distal circumflex prior to left PDA - widely patent distal LAD stent Recommendations: Nonischemic etiology for patient's severe global cardiomyopathy. Refer to tertiary center for evaluation of aortic valve replacement. Continued ASCVD risk factor modification (Nichole Alanis MD)
--- NOTE | 2017-06-22 11:05 | Cardiology Follow-Up ---
Subjective Date of Service: Jun 22, 2017. Pt evaluation today including: conversation w/ patient, conversation w/ family , physical exam, lab review, review of studies, review of inpatient medication list, conversation w/ attending History of Present Illness This is a very pleasant 81-year-old gentleman who lives in [place] but has had healthcare in other states but is currently visiting his niece here in [place]. He has had urologic problems due to an indwelling catheter, but has not been seen by cardiology locally. I do not have good records of his prior cardiovascular history, he initially told me that he was not aware of having any trouble with his heart however his niece tells me that he was evaluated in [place] and was told that he did have some cardiac problems (she did not know specifics) but refused evaluation at that time. Further details have emerged and he has had stent placement in the past, which we did not know about, evidently in [place] perhaps in 2009. He describes doing well physically until the last year so when he has had a lot of difficulties. Specifically he has less ability to do activities then he could in the past, he really cannot live by himself anymore and he has difficulty raising his right arm overhead and his speech has become more difficult to understand according to his niece. All of these things occurred over the last year, perhaps 6 months. He does not have lightheadedness or dizziness, he has no awareness of his heart rhythm and he does not have exertional chest discomfort that he will admit. On admission here for urologic issues he was noted to be in atrial fibrillation and have some congestive heart failure findings on chest x-ray. He also has significant valvular heart disease. Echocardiography shows significant left ventricular dysfunction and severe aortic stenosis. With uncertainty as to the time course of his cardiac illness we did perform catheterization yesterday where he has severe coronary disease but nothing to explain his left ventricular dysfunction. At this point however I do not know if some of that might be old, especially in view of having prior stent placement. Our recommendation is to have an evaluation for valve replacement, but that cannot be done at this institution. Today he feels well, he has no chest discomfort, no shortness of breath and no palpitations. Social History Smoking Status: Former Smoker History of Alcohol Use: No Review of Systems Respiratory: + shortness of breath, + dyspnea on exertion, No cough, No wheezing Cardiac: No chest pain, No orthopnea, No PND, No edema, No palpitations Inability to raise his right arm above his shoulder or use it normally Medications Cardiovascular: Item Value Date Time Aspirin 81 mg 06/20/17 0900 (Aspirin Chew) DAILY/PO 06/22/17 0823 Metoprolol 5 mg 06/19/17 1930 Tartrate Q6H PRN/IV (Lopressor Iv) Objective Vital Signs Past 12 Hours Date Time Temp Pulse Resp B/P (MAP) Pulse Ox O2 Delivery O2 Flow Rate FiO2 06/22/17 08:00 Room Air 06/22/17 07:21 37.2 62 18 160/89 (112) 96 06/22/17 07:13 56 18 97 Room Air 06/22/17 04:06 36.5 60 20 161/82 (108) 98 Room Air 06/22/17 04:00 Room Air 06/22/17 00:00 Room Air 06/21/17 23:05 36.4 69 18 162/91 (114) 96 Room Air Last Recorded Weight-Kilograms: 76.000 Physical Exam Constitutional: General Apperance: heathly-appearing Level of Distress: NAD Lungs: Respiratory effort: no dyspnea, good air movement Auscultation: no wheezing, rales/crackles on the left, rales/crackles on the right Cardiovascular: Heart Auscultation: no rubs, no gallops, II/ MILAN, II/ WSM, irregular rate rhythm Peripheral Pulses: Bruits: none appreciated Extremities: no edema Data Laboratory Results: Last 24 Hours Test 06/22/17 06:17 White Blood Count 4.20 K/uL Red Blood Count 3.88 M/uL Hemoglobin 12.0 g/dL Hematocrit 34.8 % Mean Corpuscular Volume 89.7 fL Mean Corpuscular Hemoglobin 30.9 pg Mean Corpuscular Hemoglobin Concent 34.5 g/dl RDW Standard Deviation 45.3 fL RDW Coefficient of Variation 13.8 % Platelet Count 167 K/uL Mean Platelet Volume 8.9 fL Activated Partial Thromboplast Time 34.3 SECONDS Partial Thromboplastin Ratio 1.3 Sodium Level 135 mmol/L Potassium Level 3.7 mmol/L Chloride Level 105 mmol/L Carbon Dioxide Level 22 mmol/L Anion Gap 8.0 mmol/L Blood Urea Nitrogen 21 mg/dl Creatinine 1.18 mg/dl Est Creatinine Clear Calc Drug Dose 45.8 ml/min Estimated GFR () 67.6 Estimated GFR (Non- 58.3 BUN/Creatinine Ratio 17.7 Random Glucose 86 mg/dl Calcium Level 8.3 mg/dl Telemetry reviewed: Atrial fibrillation with a controlled heart rate. Assessment and Plan 1. Aortic stenosis: He has severe aortic stenosis, to the point where he likely will need valve replacement. I do not know how long this has been known , it evidently was identified in [place] relatively recently, possibly before that as we do not have records. Our recommendation is to have evaluation for valve replacement. Although it could be done in [place] there are insurance issues and his family is leaning toward sending him back home to [place] or [place] for that evaluation. 2. Atrial fibrillation: I do not know how long he has had atrial fibrillation, it could be recent or could be long-standing. His rate is well controlled and he is not aware of it. He was not on anticoagulation as an outpatient. I would recommend using Eliquis, 5 mg twice daily. Rate control does not seem to be an issue at rest, we may have to evaluate that with exertion. 3. Cardiomyopathy: He has at least a moderate cardiomyopathy with ejection fraction 35-40%. This may be related to his aortic stenosis, however he has wall motion abnormalities and conduction abnormalities so some of it could be due to ischemic heart disease and we do not have prior records to make that determination. He is not on medical therapy for his cardiomyopathy, his blood pressure is elevated and his heart rate is not low. I am going to start beta- blockade. 4. Right arm weakness and dysarthria: His niece reports that his speech is much more difficult to understand over the last 6-12 months and he notes difficulty using his arm over that same period of time. Although he attributes this to some type of shoulder injury I am concerned that he could have had a stroke. On CT scanning he did have several lacunar strokes, I do not know that this would cause these neurologic findings however. In any case he should be on anticoagulation as well as aspirin for his underlying atrial fibrillation and coronary disease and this would be treatment for small vessel disease as well. Thank you for allowing me to participate in his care.
[2017-06-22] MEDS: ALBUT/IPRATROP 3MG/0.5MG NEB 3 ML VIAL INH PRN (11:14)
[2017-06-22] MEDS ORDERED: CARVEDILOL 12.5 MG TAB PO ONE (11:30)
--- NOTE | 2017-06-22 14:34 | DIAGNOSTIC IMAGING REPORT ---
CHEST ONE VIEW PORTABLE HISTORY: 81 years-old Male assess pneumonia acute atrial fibrillation with pneumonia COMPARISON: Chest radiograph 06/19/2017 TECHNIQUE: Portable AP view of the chest FINDINGS: Cardiac silhouette is mildly enlarged, unchanged. Tortuosity of the thoracic aorta. No pneumothorax. Trace bilateral pleural effusions with persistent patchy bibasilar opacities. There is slight improvement of the airspace opacities within the left midlung. Decreased pulmonary vascular congestion. Bones of the chest appear grossly intact. Degenerative changes are seen within the bilateral shoulders. IMPRESSION: 1. Persistent patchy bibasilar opacities with improved aeration of the left midlung. 2. Trace bilateral pleural effusions. 3. Cardiomegaly with decreased pulmonary vascular congestion. The above report was generated using voice recognition software. It may contain grammatical, syntax or spelling errors. Electronically signed by: Stanley Pittman M.D. 06/22/2017 2:33 PM Dictated Date/Time: 06/22/2017 2:30 PM
[2017-06-22] MEDS: LEVALBUTEROL 1.25MG/3ML NEB INH SCH ×3 (15:00→19:09)
[2017-06-22] MEDS: ACETAMINOPHEN 325 MG TAB PO PRN (16:39)
[2017-06-22] MEDS: LEVOFLOXACIN / D5W 750 MG in PREMIXED IN D5W 150 ML IV SCH (17:25)
[2017-06-22] MEDS: GUAIFENESIN 600 MG TABCR PO SCH (20:37)
[2017-06-22] MEDS: CARVEDILOL 6.25 MG TAB PO SCH (20:38)
[2017-06-23] VITALS (12 sets, daily range): BP systolic 132–168; BP diastolic 69–89; PULSE 53–80; TEMP 36.3–37; O2SAT 92–99
[2017-06-23] MEDS: LEVALBUTEROL 1.25MG/3ML NEB INH SCH ×4 (01:55→19:28)
[2017-06-23 07:00] LABS: PTT PATIENT 32.4 SECONDS (21.0-31.0)
[2017-06-23] MEDS: ASPIRIN 81 MG CHEW PO SCH (08:49)
[2017-06-23] MEDS: GUAIFENESIN 600 MG TABCR PO SCH ×2 (08:50→20:46)
[2017-06-23] MEDS: CARVEDILOL 6.25 MG TAB PO SCH ×2 (09:00→20:44)
--- NOTE | 2017-06-23 11:06 | Cardiology Follow-Up ---
Subjective Date of Service: Jun 23, 2017. Pt evaluation today including: conversation w/ patient, conversation w/ family , physical exam, lab review, review of inpatient medication list History of Present Illness This is a very pleasant 81-year-old gentleman who lives in [place] but has had healthcare in other states but is currently visiting his niece here in [place]. He has had urologic problems due to an indwelling catheter, but has not been seen by cardiology locally. I do not have good records of his prior cardiovascular history, he initially told me that he was not aware of having any trouble with his heart however his niece tells me that he was evaluated in [place] and was told that he did have some cardiac problems (she did not know specifics) but refused evaluation at that time. Further details have emerged and he has had stent placement in the past, which we did not know about, evidently in [place] perhaps in 2009. He describes doing well physically until the last year so when he has had a lot of difficulties. Specifically he has less ability to do activities then he could in the past, he really cannot live by himself anymore and he has difficulty raising his right arm overhead and his speech has become more difficult to understand according to his niece. All of these things occurred over the last year, perhaps 6 months. He does not have lightheadedness or dizziness, he has no awareness of his heart rhythm and he does not have exertional chest discomfort that he will admit. On admission here for urologic issues he was noted to be in atrial fibrillation and have some congestive heart failure findings on chest x-ray. He also has significant valvular heart disease. Echocardiography shows significant left ventricular dysfunction and severe aortic stenosis. With uncertainty as to the time course of his cardiac illness we did perform catheterization yesterday where he has severe coronary disease but nothing to explain his left ventricular dysfunction. At this point however I do not know if some of that might be old, especially in view of having prior stent placement. Our recommendation is to have an evaluation for valve replacement, but that cannot be done at this institution. Today he feels well, he has no chest discomfort, no shortness of breath and no palpitations. He is anxious to leave the hospital, but he knows he is going to rehab. He seems willing to stay in the area to get his valve evaluated. Social History Smoking Status: Former Smoker History of Alcohol Use: No Review of Systems Respiratory: + see HPI, + cough, + sputum, No wheezing Cardiac: No chest pain, No palpitations Inability to raise his right arm above his shoulder or use it normally Medications Cardiovascular: Item Value Date Time Carvedilol 6.25 mg 06/22/17 2100 (Coreg Tab) BID/PO 06/22/172037 Aspirin 81 mg 06/20/17 0900 (Aspirin Chew) DAILY/PO 06/23/17 0849 Metoprolol 5 mg 06/19/17 1930 Tartrate Q6H PRN/IV (Lopressor Iv) Objective Vital Signs Past 12 Hours Date Time Temp Pulse Resp B/P (MAP) Pulse Ox O2 Delivery O2 Flow Rate FiO2 06/23/17 08:06 37.0 80 20 168/89 (115) 92 06/23/17 08:00 Room Air 06/23/17 07:30 62 18 99 Room Air 06/23/17 05:22 55 16 93 Room Air 06/23/17 04:00 36.4 57 20 134/79 (97) 96 Room Air 06/23/17 04:00 99 Room Air 06/23/17 00:01 99 Room Air 06/22/17 23:52 36.8 78 18 130/68 (88) 96 Room Air Last Recorded Weight-Kilograms: 75.800 Physical Exam Constitutional: General Apperance: heathly-appearing Level of Distress: NAD Lungs: Respiratory effort: no dyspnea, good air movement Auscultation: no wheezing, rales/crackles on the left, rales/crackles on the right Cardiovascular: Heart Auscultation: no rubs, no gallops, II/ MILAN, II/ WSM, irregular rate rhythm Peripheral Pulses: Bruits: none appreciated Extremities: no edema Right wrist catheterization site looks good Data Laboratory Results: Last 24 Hours Test 06/23/17 06:36 Activated Partial Thromboplast Time 32.4 SECONDS Partial Thromboplastin Ratio 1.2 Telemetry reviewed: A. fib, heart rate somewhat low on his current dose of carvedilol resulting it being held today. Heart rate is in the 30s at times although averaging higher than that. Assessment and Plan 1. Aortic stenosis: He has severe aortic stenosis, to the point where he likely will need valve replacement. I do not know how long this has been known , it evidently was identified in [place] relatively recently, possibly before that as we do not have records. Our recommendation is to have evaluation for valve replacement. He and his family have determined that we can probably do that at [facility], they are working on insurance situation. We will tentatively plan on having an evaluation set up, I will make those arrangements early this next week. 2. Atrial fibrillation: I do not know how long he has had atrial fibrillation, it could be recent or could be long-standing. His rate is well controlled, in fact it is too slow now on his current dose of carvedilol. I am going to reduce his carvedilol. He was not on anticoagulation as an outpatient. I would recommend using Eliquis, 5 mg twice daily. . 3. Cardiomyopathy: He has at least a moderate cardiomyopathy with ejection fraction 35-40%. This may be related to his aortic stenosis, however he has wall motion abnormalities and conduction abnormalities so some of it could be due to ischemic heart disease and we do not have prior records to make that determination. He is not on medical therapy for his cardiomyopathy, his blood pressure is elevated and his heart rate is now slow on carvedilol 6.25 mg twice daily. I am going to reduce his dose to 3.125 mg twice daily. 4. Right arm weakness and dysarthria: His niece reports that his speech is much more difficult to understand over the last 6-12 months and he notes difficulty using his arm over that same period of time. Although he attributes this to some type of shoulder injury I am concerned that he could have had a stroke. On CT scanning he did have several lacunar strokes, I do not know that this would cause these neurologic findings however. In any case he should be on anticoagulation as well as aspirin for his underlying atrial fibrillation and coronary disease and this would be treatment for small vessel disease as well. Thank you for allowing me to participate in his care.
[2017-06-23] MEDS ORDERED: APIXABAN 2.5 MG TAB PO ONE (11:15)
[2017-06-23] MEDS ORDERED: CARVEDILOL 3.125 MG TAB PO ONE (11:15)
--- NOTE | 2017-06-23 14:00 | Progress Note ---
Subjective Date of Service: Jun 23, 2017. Subjective Pt evaluation today including: conversation w/ patient Patient today has no complaints. Patient wants to go to rehab. Problem List Medical Problems: (1) Abnormal ECG Status: Acute (2) Catheter-associated urinary tract infection Status: Acute (3) Elevated troponin I level Status: Acute (4) Multifocal pneumonia Status: Acute (5) New onset a-fib Status: Acute Review of Systems Constitutional: + fatigue, No fever, No chills, No sweats Eyes: No redness, No diplopia ENT: No nasal symptoms, No sore throat, No trouble swallowing Respiratory: + see HPI, + cough, + sputum, No wheezing Cardiovascular: No chest pain, No palpitations Abdomen: No pain, No nausea, No vomiting, No diarrhea, No constipation Musculoskeletal: No joint pain, No swelling Neurologic: No weakness, No numbness/tingling Psychiatric: No depression symptoms, No anxiety All Other Systems: Reviewed and Negative Objective Vital Signs Date Time Temp Pulse Resp B/P (MAP) Pulse Ox O2 Delivery O2 Flow Rate FiO2 06/23/17 12:00 Room Air 06/23/17 11:47 36.5 71 16 159/74 (102) 94 06/23/17 08:06 37.0 80 20 168/89 (115) 92 06/23/17 08:00 Room Air 06/23/17 07:30 62 18 99 Room Air 06/23/17 05:22 55 16 93 Room Air 06/23/17 04:00 36.4 57 20 134/79 (97) 96 Room Air 06/23/17 04:00 99 Room Air 06/23/17 00:01 99 Room Air 06/22/17 23:52 36.8 78 18 130/68 (88) 96 Room Air 06/22/17 20:00 99 Room Air 06/22/17 19:09 59 18 99 Room Air 06/22/17 19:02 36.5 58 16 142/83 (102) 97 Room Air 06/22/17 16:00 Room Air 06/22/17 15:00 37.0 59 18 145/85 (105) 98 Room Air Physical Exam Comments: General Appearance: WD/WN, no apparent distress Eyes: PERRL, EOMI ENT: hearing grossly normal, pharynx normal Neck: no adenopathy, no JVD Respiratory/Chest: + pertinent finding (on RA, coarse breath sounds throughout , + productive cough, no crackles or wheeze) Cardiovascular: + systolic murmur (grade III/, RUSB), + irregularly irregular Abdomen: normal bowel sounds, non tender, soft Extremities: non-tender, no calf tenderness, + pedal edema (mild, nonpitting BLE) Neurologic/Psychiatric: alert, normal mood/affect, oriented x 3 Skin: normal color, warm/dry Laboratory Results Last 24 Hours Test 06/23/17 06:36 Activated Partial Thromboplast Time 32.4 SECONDS Partial Thromboplastin Ratio 1.2 Assessment and Plan 81 y/o male with a history of HTN, prediabetes, colon cancer s/p resection, and chronic urinary retention w/chronic Haque who presented to the ED on 06/19 with cough and decreased appetite. Atrial fibrillation, chronic--stable, rate controlled CAD Hx of cardiac stenting in ~ 2009 - Pt in rate controlled a-fib with HR 70-80 overnight - TSH, potassium, magnesium WNL - Echo shows EF 35-40%. Mid to apical septum akinesis. Severe inferior hypokinesis. Moderate inferolateral hypokinesis. Severe calcified aortic stenosis. Moderate pulmonary HTN with PASP 55-60 mmHg. Grade II diastolic dysfunction -Overnight sleep study was negative as Did not have more than 2 minutes with o2 sat below 88% - Cardiology consulted, appreciate recs - Likely chronic a-fib. now off heparin gtt. Severe . - S/p cardiac cath on 06/21 - severe single vessel disease, aortic valve to be replaced by tertiary care center. - Heparin gtt off, discussed risk vs benefits of anticoagulation with the patient - Eliquis 5 mg BID - ask CM to check the cost. Chest pain--resolved -Troponin peaked at 0.063, trending down. Likely secondary to demand ischemia -Lipid panel WNL -Will d/c empiric Lipitor due to low cholesterol in elderly pt, increased ICH risk -HgbA1c 5.0 Combined systolic/diastolic CHF--stable -Negative fluid balance here Multifocal PNA--stable -Continue Levaquin 750 mg IV q48h (renal dosing), will complete 7 days. 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 - No neurology consult at this time - tx with asa, bp control, anticoagulation and pt/ot Mild hyponatremia--stable, asymptomatic -Continue to monitor H/o colon cancer s/p resection--noted Urinary retention w/ indwelling Haque--noted DVT prophylaxis: teds, scds, off heparin gtt Code Status: DNR Dispo -From [place], in town visiting niece. Had lived alone- plan d/c to [facility] possible in next 24 hours. awaiting placement Cardio will coordinate treatment for aortic stenosis this week. This however should not postpone discharge to rehab.
[2017-06-23] MEDS: ACETAMINOPHEN 325 MG TAB PO PRN (15:44)
[2017-06-23] MEDS: CARVEDILOL 3.125 MG TAB PO SCH (20:43)
[2017-06-23] MEDS: APIXABAN 2.5 MG TAB PO SCH (20:44)
[2017-06-24] VITALS (12 sets, daily range): BP systolic 131–162; BP diastolic 69–92; PULSE 49–64; TEMP 36.5–37.2; O2SAT 94–100
[2017-06-24] MEDS: LEVALBUTEROL 1.25MG/3ML NEB INH SCH ×4 (01:55→19:16)
[2017-06-24 06:55] LABS: HEMATOCRIT 36.3 % (42-52); HEMOGLOBIN 12.1 g/dL (14.0-18.0); MEAN CELL VOLUME 89.4 fL (80-100); MEAN CORPUSCULAR HEMOGLOBIN 29.8 pg (25-34); MEAN CORPUSCULAR HGB CONC 33.3 g/dl (32-36); MEAN PLATELET VOLUME 8.5 fL (7.4-10.4); PLATELET COUNT 169 K/uL (130-400); RED CELL DISTRIBUTION WIDTH CV 13.7 % (11.5-14.5); RED CELL DISTRIBUTION WIDTH SD 45.1 fL (36.4-46.3); WHITE BLOOD COUNT 5.29 K/uL (4.8-10.8)
[2017-06-24 07:02] LABS: PTT PATIENT 33.7 SECONDS (21.0-31.0)
[2017-06-24] MEDS: ASPIRIN 81 MG CHEW PO SCH (08:45)
[2017-06-24] MEDS: CARVEDILOL 6.25 MG TAB PO SCH ×2 (08:46→20:58)
[2017-06-24] MEDS: APIXABAN 2.5 MG TAB PO SCH ×2 (08:47→20:59)
[2017-06-24] MEDS: GUAIFENESIN 600 MG TABCR PO SCH ×2 (08:47→20:59)
[2017-06-24] MEDS: CARVEDILOL 3.125 MG TAB PO SCH ×2 (09:00→20:58)
[2017-06-24] MEDS: ALBUT/IPRATROP 3MG/0.5MG NEB 3 ML VIAL INH PRN (14:30)
[2017-06-24] MEDS: LEVOFLOXACIN / D5W 750 MG in PREMIXED IN D5W 150 ML IV SCH (17:46)
--- NOTE | 2017-06-24 22:14 | Progress Note ---
Subjective Date of Service: Jun 24, 2017. Subjective Pt evaluation today including: conversation w/ patient Patient has no new complaints today. Problem List Medical Problems: (1) Abnormal ECG Status: Acute (2) Catheter-associated urinary tract infection Status: Acute (3) Elevated troponin I level Status: Acute (4) Multifocal pneumonia Status: Acute (5) New onset a-fib Status: Acute Review of Systems Constitutional: No fever, No chills Eyes: No worsening of vision ENT: No hearing loss Respiratory: + cough, + sputum Cardiac: No chest pain Abdomen: No pain Musculoskeletal: No joint pain Neurologic: No memory loss Psychiatric: No depression symptoms Heme: No abnormal bleeding/bruising Endo: No fatigue Skin: No rash All Other Systems: Reviewed and Negative Medications Current Inpatient Medications Medications (Trade) Dose Ordered Sig/Brittany Route Start Time Stop Time Status Last Admin Dose Admin Acetaminophen (Tylenol Tab) 650 mg Q4H PRN PO 06/19/17 19:15 07/19/17 19:14 06/23/17 15:44 650 MG Al Hydrox/Mg Hydrox/Simethicone (Maalox Max Susp) 15 ml Q4H PRN PO 06/19/17 19:15 07/19/17 19:14 Magnesium Hydroxide (Milk Of Magnesia Susp) 30 ml Q12H PRN PO 06/19/17 19:15 07/19/17 19:14 Ondansetron HCl (Zofran Inj) 4 mg Q6H PRN IV 06/19/17 19:15 07/19/17 19:14 Nitroglycerin (Nitrostat Tab) 0.4 mg UD PRN SL 06/19/17 19:15 07/19/17 19:14 Morphine Sulfate (MoRPHine SULFATE INJ) 2 mg Q30M PRN IV 06/19/17 19:15 07/03/17 19:14 Polyethylene (Miralax Powder Packet) 17 gm DAILY PRN PO 06/19/17 19:15 07/19/17 19:14 Albuterol/ Ipratropium (Duoneb) 3 ml Q4H PRN INH 06/19/17 19:15 07/19/17 19:14 06/24/17 14:30 3 ML Hydralazine HCl (HydrALAZINE INJ) 10 mg Q6H PRN IV. 06/19/17 19:15 07/19/17 19:14 Metoprolol Tartrate (Lopressor Iv) 5 mg Q6H PRN IV 06/19/17 19:30 07/19/17 19:29 Aspirin (Aspirin Chew) 81 mg DAILY PO 06/20/17 09:00 07/20/17 08:59 06/24/17 08:45 81 MG Levofloxacin 750 mg/Prmx 150 ml @ 100 mls/hr Q48H IV 06/22/17 18:00 06/27/17 17:59 06/24/17 17:46 100 MLS/HR Levalbuterol (Xopenex 1.25MG/ 3ML Neb) 1.25 mg Q6R INH 06/22/17 11:15 07/22/17 11:14 06/24/17 19:16 1.25 MG Guaifenesin (Mucinex Contr Rel Tab) 1,200 mg Q12 PO 06/22/17 21:00 07/22/17 20:59 06/24/17 20:59 1,200 MG Carvedilol (Coreg Tab) 6.25 mg BID PO 06/22/17 21:00 07/22/17 20:59 06/22/17 20:38 6.25 MG Carvedilol (Coreg Tab) 3.125 mg BID PO 06/23/17 21:00 07/23/17 20:59 Apixaban (Eliquis Tab) 5 mg BID PO 06/23/17 21:00 07/23/17 20:59 06/24/17 20:59 5 MG Objective Vital Signs Date Time Temp Pulse Resp B/P (MAP) Pulse Ox O2 Delivery O2 Flow Rate FiO2 06/24/17 19:17 37.2 57 18 162/78 (106) 100 Room Air 06/24/17 19:16 56 16 99 Room Air 06/24/17 16:00 Room Air 06/24/17 15:05 37.0 64 16 162/84 (110) 95 Room Air 06/24/17 14:31 53 16 94 Room Air 06/24/17 12:00 Room Air 06/24/17 11:55 36.7 49 16 161/69 (99) 97 06/24/17 08:23 36.8 51 18 159/75 (103) 96 06/24/17 08:00 Room Air 06/24/17 07:40 56 16 94 Room Air 06/24/17 04:00 95 Room Air 06/24/17 04:00 36.5 54 18 155/92 (113) 94 Room Air 06/24/17 01:56 56 16 95 Room Air 06/24/17 00:01 96 Room Air 3.0 06/23/17 23:40 36.3 59 20 151/81 (104) 97 Room Air Physical Exam Comments: General Appearance: WD/WN, no apparent distress Eyes: PERRL, EOMI ENT: hearing grossly normal, pharynx normal Neck: no adenopathy, no JVD Respiratory/Chest: + pertinent finding (on RA, coarse breath sounds throughout , + productive cough, no crackles or wheeze) Cardiovascular: + systolic murmur (grade III/, RUSB), + irregularly irregular Abdomen: normal bowel sounds, non tender, soft Extremities: non-tender, no calf tenderness, + pedal edema (mild, nonpitting BLE) Neurologic/Psychiatric: alert, normal mood/affect, oriented x 3 Skin: normal color, warm/dry Laboratory Results Last 24 Hours Test 06/24/17 06:31 White Blood Count 5.29 K/uL Red Blood Count 4.06 M/uL Hemoglobin 12.1 g/dL Hematocrit 36.3 % Mean Corpuscular Volume 89.4 fL Mean Corpuscular Hemoglobin 29.8 pg Mean Corpuscular Hemoglobin Concent 33.3 g/dl RDW Standard Deviation 45.1 fL RDW Coefficient of Variation 13.7 % Platelet Count 169 K/uL Mean Platelet Volume 8.5 fL Activated Partial Thromboplast Time 33.7 SECONDS Partial Thromboplastin Ratio 1.3 Assessment and Plan 81 y/o male with a history of HTN, prediabetes, colon cancer s/p resection, and chronic urinary retention w/chronic Haque who presented to the ED on 06/19 with cough and decreased appetite. Atrial fibrillation, chronic--stable, rate controlled CAD Hx of cardiac stenting in ~ 2009 - Pt in rate controlled a-fib with HR 70-80 overnight - TSH, potassium, magnesium WNL - Echo shows EF 35-40%. Mid to apical septum akinesis. Severe inferior hypokinesis. Moderate inferolateral hypokinesis. Severe calcified aortic stenosis. Moderate pulmonary HTN with PASP 55-60 mmHg. Grade II diastolic dysfunction -Overnight sleep study was negative as Did not have more than 2 minutes with o2 sat below 88% - Cardiology consulted, appreciate recs - Likely chronic a-fib. now off heparin gtt. Severe . - S/p cardiac cath on 06/21 - severe single vessel disease, aortic valve to be replaced by tertiary care center. - Heparin gtt off, discussed risk vs benefits of anticoagulation with the patient - Eliquis 5 mg BID - ask CM to check the cost. Chest pain--resolved -Troponin peaked at 0.063, trending down. Likely secondary to demand ischemia -Lipid panel WNL -Will d/c empiric Lipitor due to low cholesterol in elderly pt, increased ICH risk -HgbA1c 5.0 Combined systolic/diastolic CHF--stable -Negative fluid balance here Multifocal PNA--stable -Continue Levaquin 750 mg IV q48h (renal dosing), will complete 7 days. started on 06-20 (Last dose will be 17, can be taken orally) - Switch to xopenex QID and PRN for SOB/wheezing - BCx NGTD, sputum culture pending - Add incentive spirometry, flutter, mucinex -will likely require x-ray in 4 weeks to ensure resolution. 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 - No neurology consult at this time - tx with asa, bp control, anticoagulation and pt/ot Mild hyponatremia--stable, asymptomatic -Continue to monitor H/o colon cancer s/p resection--noted Urinary retention w/ indwelling Haque--noted DVT prophylaxis: teds, scds, off heparin gtt Code Status: DNR Dispo -From [place], in town visiting niece. Had lived alone- plan d/c to [place] possibly Sunday, as insurance office is closed on weekend. awaiting placement Cardio will coordinate treatment for aortic stenosis this week. This however should not postpone discharge to rehab.
[2017-06-25] VITALS (11 sets, daily range): BP systolic 119–167; BP diastolic 67–82; PULSE 50–61; TEMP 36.5–36.9; O2SAT 97–100
[2017-06-25] MEDS: LEVALBUTEROL 1.25MG/3ML NEB INH SCH ×2 (01:55→07:12)
[2017-06-25 06:58] LABS: PTT PATIENT 33.6 SECONDS (21.0-31.0)
[2017-06-25] MEDS: GUAIFENESIN 600 MG TABCR PO SCH ×2 (08:31→21:23)
[2017-06-25] MEDS: ASPIRIN 81 MG CHEW PO SCH (08:31)
[2017-06-25] MEDS: APIXABAN 2.5 MG TAB PO SCH ×2 (08:32→21:23)
[2017-06-25] MEDS: CARVEDILOL 3.125 MG TAB PO SCH ×2 (08:32→21:22)
[2017-06-25] MEDS: CARVEDILOL 6.25 MG TAB PO SCH (08:32)
--- NOTE | 2017-06-25 09:46 | Cardiology Follow-Up ---
Subjective Date of Service: Jun 25, 2017. Pt evaluation today including: conversation w/ patient, conversation w/ family , physical exam, lab review, review of studies, review of inpatient medication list History of Present Illness This is a very pleasant 81-year-old gentleman who lives in [place] but has had healthcare in other states but is currently visiting his niece here in [place]. He has had urologic problems due to an indwelling catheter, but has not been seen by cardiology locally. I do not have good records of his prior cardiovascular history, he initially told me that he was not aware of having any trouble with his heart however his niece tells me that he was evaluated in [place] and was told that he did have some cardiac problems (she did not know specifics) but refused evaluation at that time. Further details have emerged and he has had stent placement in the past, which we did not know about, evidently in [place] perhaps in 2009. He describes doing well physically until the last year so when he has had a lot of difficulties. Specifically he has less ability to do activities then he could in the past, he really cannot live by himself anymore and he has difficulty raising his right arm overhead and his speech has become more difficult to understand according to his niece. All of these things occurred over the last year, perhaps 6 months. He does not have lightheadedness or dizziness, he has no awareness of his heart rhythm and he does not have exertional chest discomfort that he will admit. On admission here for urologic issues he was noted to be in atrial fibrillation and have some congestive heart failure findings on chest x-ray. He also has significant valvular heart disease. Echocardiography shows significant left ventricular dysfunction and severe aortic stenosis. With uncertainty as to the time course of his cardiac illness we did perform catheterization yesterday where he has severe coronary disease but nothing to explain his left ventricular dysfunction. At this point however I do not know if some of that might be old, especially in view of having prior stent placement. Our recommendation is to have an evaluation for valve replacement, but that cannot be done at this institution. He continues to do quite well symptomatically, he has had no chest discomfort or palpitations. He is not very active however. He and his niece are arranging for him to stay in the area, hopefully at rehab followed by evaluation at [facility] for valve replacement. Social History Smoking Status: Former Smoker History of Alcohol Use: No Review of Systems Respiratory: No shortness of breath Cardiac: No chest pain Inability to raise his right arm above his shoulder or use it normally Medications Cardiovascular: Item Value Date Time Carvedilol 3.125 mg 06/23/17 2100 (Coreg Tab) BID/PO 06/25/17 0832 Apixaban 5 mg 06/23/17 2100 (Eliquis Tab) BID/PO 06/25/17 0832 Aspirin 81 mg 06/20/17 0900 (Aspirin Chew) DAILY/PO 06/25/17 0831 Objective Vital Signs Past 12 Hours Date Time Temp Pulse Resp B/P (MAP) Pulse Ox O2 Delivery O2 Flow Rate FiO2 06/25/17 08:00 Room Air 06/25/17 07:34 36.6 61 18 161/79 (106) 97 06/25/17 07:14 58 16 97 Room Air 06/25/17 04:51 36.5 56 18 137/82 (100) 99 Room Air 06/25/17 04:00 97 Room Air 06/25/17 01:55 58 16 97 Room Air 06/25/17 00:01 98 Room Air 06/24/17 23:38 36.7 60 18 131/69 (89) 94 Room Air Last Recorded Weight-Kilograms: 75.100 Physical Exam Constitutional: General Apperance: heathly-appearing Level of Distress: NAD Lungs: Respiratory effort: no dyspnea, good air movement Auscultation: no wheezing, rales/crackles on the left, rales/crackles on the right Cardiovascular: Heart Auscultation: no rubs, no gallops, II/ MILAN, II/ WSM, irregular rate rhythm Peripheral Pulses: Bruits: none appreciated Extremities: no edema Right wrist catheterization site looks good Data Laboratory Results: Last 24 Hours Test 06/25/17 06:36 Activated Partial Thromboplast Time 33.6 SECONDS Partial Thromboplastin Ratio 1.3 Telemetry reviewed: Atrial fibrillation with a reasonably well-controlled heart rate. One 10 beat run of nonsustained ventricular tachycardia with a decreasing cycle length consistent with an automatic focus. Assessment and Plan 1. Aortic stenosis: He has severe aortic stenosis, to the point where he likely will need valve replacement. I do not know how long this has been known , it evidently was identified in [place] relatively recently, possibly before that as we do not have records. Our recommendation is to have evaluation for valve replacement. He and his family have determined that we can probably do that at [facility], they are working on insurance situation. We will tentatively plan on having an evaluation set up, I will make those arrangements. 2. Atrial fibrillation: I do not know how long he has had atrial fibrillation, it could be recent or could be long-standing. His rate is well controlled, in fact it is too slow forcing us to reduce his carvedilol. He was not on anticoagulation as an outpatient. I would recommend continuing Eliquis 5 mg twice daily, which she seems to be tolerating well. 3. Cardiomyopathy: He has at least a moderate cardiomyopathy with ejection fraction 35-40%. This may be related to his aortic stenosis, however he has wall motion abnormalities and conduction abnormalities so some of it could be due to ischemic heart disease and we do not have prior records to make that determination. He is not on medical therapy for his cardiomyopathy, his blood pressure is elevated and his heart rate was slow on carvedilol 6.25 mg twice daily. I am going to continue 3.125 mg twice daily. 4. Right arm weakness and dysarthria: His niece reports that his speech is much more difficult to understand over the last 6-12 months and he notes difficulty using his arm over that same period of time. Although he attributes this to some type of shoulder injury I was concerned that it could have been from a stroke. On CT scanning he did have several lacunar strokes, I do not know that this would cause these neurologic findings however. In any case he should be on anticoagulation as well as aspirin for his underlying atrial fibrillation and coronary disease and this would be treatment for small vessel disease as well. Thank you for allowing me to participate in his care.
[2017-06-25] MEDS ORDERED: LEVALBUTEROL 1.25MG/3ML NEB INH PRN (11:30)
--- NOTE | 2017-06-25 11:45 | Hospitalist Progress Note ---
Hospitalist Progress Note Date of Service Jun 25, 2017. Subjective Pt evaluation today including: conversation w/ patient, conversation w/ family (niece at bedside ), physical exam, lab review, review of studies, review of inpatient medication list Voiding: arambula catheter in place Patient resting in bed. Feeling well this AM. Anxious for discharge. Eating and drinking OK. Niece at bedside- all questions/concerns answered. Hoping for [facility] at discharge. Patient denies any fever, chills, sweats, lightheadedness, dizziness, vision changes, CP, palpitations, edema, SOB, wheezing, cough, abdominal pain, nausea, vomiting, diarrhea, urinary symptoms, melena, numbness/tingling, weakness, muscle/joint pain, anxiety/depression, active bleeding, or new skin discoloration/changes. Medications Current Inpatient Medications Medications (Trade) Dose Ordered Sig/Brittany Route Start Time Stop Time Status Last Admin Dose Admin Acetaminophen (Tylenol Tab) 650 mg Q4H PRN PO 06/19/17 19:15 07/19/17 19:14 06/23/17 15:44 650 MG Al Hydrox/Mg Hydrox/Simethicone (Maalox Max Susp) 15 ml Q4H PRN PO 06/19/17 19:15 07/19/17 19:14 Magnesium Hydroxide (Milk Of Magnesia Susp) 30 ml Q12H PRN PO 06/19/17 19:15 07/19/17 19:14 Ondansetron HCl (Zofran Inj) 4 mg Q6H PRN IV 06/19/17 19:15 07/19/17 19:14 Nitroglycerin (Nitrostat Tab) 0.4 mg UD PRN SL 06/19/17 19:15 07/19/17 19:14 Morphine Sulfate (MoRPHine SULFATE INJ) 2 mg Q30M PRN IV 06/19/17 19:15 07/03/17 19:14 Polyethylene (Miralax Powder Packet) 17 gm DAILY PRN PO 06/19/17 19:15 07/19/17 19:14 Albuterol/ Ipratropium (Duoneb) 3 ml Q4H PRN INH 06/19/17 19:15 07/19/17 19:14 06/24/17 14:30 3 ML Hydralazine HCl (HydrALAZINE INJ) 10 mg Q6H PRN IV. 06/19/17 19:15 07/19/17 19:14 Metoprolol Tartrate (Lopressor Iv) 5 mg Q6H PRN IV 06/19/17 19:30 07/19/17 19:29 Aspirin (Aspirin Chew) 81 mg DAILY PO 06/20/17 09:00 07/20/17 08:59 06/25/17 08:31 81 MG Levofloxacin 750 mg/Prmx 150 ml @ 100 mls/hr Q48H IV 06/22/17 18:00 06/27/17 17:59 06/24/17 17:46 100 MLS/HR Levalbuterol (Xopenex 1.25MG/ 3ML Neb) 1.25 mg Q6R INH 06/22/17 11:15 07/22/17 11:14 06/25/17 07:12 1.25 MG Guaifenesin (Mucinex Contr Rel Tab) 1,200 mg Q12 PO 06/22/17 21:00 07/22/17 20:59 06/25/17 08:31 1,200 MG Carvedilol (Coreg Tab) 3.125 mg BID PO 06/23/17 21:00 07/23/17 20:59 06/25/17 08:32 3.125 MG Apixaban (Eliquis Tab) 5 mg BID PO 06/23/17 21:00 07/23/17 20:59 06/25/17 08:32 5 MG Objective Vital Signs Date Time Temp Pulse Resp B/P (MAP) Pulse Ox O2 Delivery O2 Flow Rate FiO2 06/25/17 08:00 Room Air 06/25/17 07:34 36.6 61 18 161/79 (106) 97 06/25/17 07:14 58 16 97 Room Air 06/25/17 04:51 36.5 56 18 137/82 (100) 99 Room Air 06/25/17 04:00 97 Room Air 06/25/17 01:55 58 16 97 Room Air 06/25/17 00:01 98 Room Air 06/24/17 23:38 36.7 60 18 131/69 (89) 94 Room Air 06/24/17 20:00 100 Room Air 06/24/17 20:00 100 Room Air 06/24/17 19:17 37.2 57 18 162/78 (106) 100 Room Air 06/24/17 19:16 56 16 99 Room Air 06/24/17 16:00 Room Air 06/24/17 15:05 37.0 64 16 162/84 (110) 95 Room Air 06/24/17 14:31 53 16 94 Room Air 06/24/17 12:00 Room Air 06/24/17 11:55 36.7 49 16 161/69 (99) 97 Physical Exam General Appearance: no apparent distress Eyes: normal inspection, PERRL ENT: hearing grossly normal Neck: supple Respiratory/Chest: no respiratory distress, no accessory muscle use, + crackles (bilateral lung bases, mild ) Cardiovascular: + systolic murmur, + irregularly irregular (rate controlled) Abdomen: normal bowel sounds, non tender, soft Extremities: no pedal edema, no calf tenderness Neurologic/Psychiatric: alert, normal mood/affect, oriented x 3 Skin: normal color, warm/dry, no rash Laboratory Results Last 24 Hours Test 06/25/17 06:36 Activated Partial Thromboplast Time 33.6 SECONDS Partial Thromboplastin Ratio 1.3 Assessment and Plan Patient is a pleasant 81 y/o male, with PMHx of urinary retention w/ chronic Arambula, who presented to the ED because of a cough. CAD, h/o cardiac stenting in ~2009, chronic a.fib- rate controlled: - Monitoring on tele- a.fib w/ rates controlled, 10-beat run of NSVT on 06/25 @ ~ 0300 - Trend cardiac enzymes- peak trop 0.063 - Coreg 3.125 mg BID, Eliquis 5 mg BID, ASA 81 mg daily - Overnight sleep study- negative - HgbA1c 5.0%, lipid panel reviewed, TSH WNL - ECHO- EF 35-40%. Mid to apical septum akinesis. Severe inferior hypokinesis. Moderate inferolateral hypokinesis. Moderate pulmonary HTN. Grade II diastolic dysfunction - Check PRP and mag level today w/ episode of NSVT overnight- WNL - Cardiology consulted, appreciate recommendations- s/p cardiac cath on 06/21- severe single vessel disease, aortic valve to be replaced by tertiary care center Severe aortic stenosis: Cardiology arranging referral to tertiary center for replacement Combined systolic/diastolic CHF- STABLE: - Treated w/ IV Lasix - Monitoring I&Os and daily weights - ECHO- EF 35-40%, grade II diastolic dysfunction Multifocal PNA- IMPROVING: - Continue Levaquin 750 mg IV q48h (renal dosing)- last day of treatment on - Xopenex QID and PRN for SOB/wheezing - BCx NGTD, sputum culture w/ normal tamera, MRSA swab negative - Incentive spirometry, flutter valve, Mucinex - Recommend 4 week f/u x-ray to ensure resolution 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
[2017-06-25 12:49] LABS: CALCIUM 8.5 mg/dl (8.5-10.1); CREATININE 1.22 mg/dl (0.60-1.40); POTASSIUM 4.8 mmol/L (3.5-5.1)
[2017-06-26] VITALS (8 sets, daily range): BP systolic 132–169; BP diastolic 67–86; PULSE 44–63; TEMP 36.6–36.8; O2SAT 97–98
[2017-06-26 07:22] LABS: HEMATOCRIT 37.1 % (42-52); HEMOGLOBIN 12.1 g/dL (14.0-18.0); MEAN CELL VOLUME 90.5 fL (80-100); MEAN CORPUSCULAR HEMOGLOBIN 29.5 pg (25-34); MEAN CORPUSCULAR HGB CONC 32.6 g/dl (32-36); PLATELET COUNT 195 K/uL (130-400); RED CELL DISTRIBUTION WIDTH CV 13.8 % (11.5-14.5); RED CELL DISTRIBUTION WIDTH SD 45.8 fL (36.4-46.3); WHITE BLOOD COUNT 5.15 K/uL (4.8-10.8)
[2017-06-26 07:31] LABS: PTT PATIENT 31.9 SECONDS (21.0-31.0)
[2017-06-26 07:55] LABS: CREATININE 1.2 mg/dl (0.60-1.40)
[2017-06-26] MEDS: APIXABAN 2.5 MG TAB PO SCH ×2 (08:46→21:09)
[2017-06-26] MEDS: ASPIRIN 81 MG CHEW PO SCH (08:46)
[2017-06-26] MEDS: CARVEDILOL 3.125 MG TAB PO SCH ×2 (08:47→21:09)
[2017-06-26] MEDS: GUAIFENESIN 600 MG TABCR PO SCH ×2 (08:47→21:09)
--- NOTE | 2017-06-26 09:06 | Cardiology Follow-Up ---
Subjective Date of Service: Jun 26, 2017. Pt evaluation today including: conversation w/ patient, physical exam, lab review, review of studies, review of inpatient medication list History of Present Illness This is a very pleasant 81-year-old gentleman who lives in [place] but has had healthcare in other states but is currently visiting his niece here in [place]. He has had urologic problems due to an indwelling catheter, but has not been seen by cardiology locally. I do not have good records of his prior cardiovascular history, he initially told me that he was not aware of having any trouble with his heart however his niece tells me that he was evaluated in [place] and was told that he did have some cardiac problems (she did not know specifics) but refused evaluation at that time. Further details have emerged and he has had stent placement in the past, which we did not know about, evidently in [place] perhaps in 2009. He describes doing well physically until the last year so when he has had a lot of difficulties. Specifically he has less ability to do activities then he could in the past, he really cannot live by himself anymore and he has difficulty raising his right arm overhead and his speech has become more difficult to understand according to his niece. All of these things occurred over the last year, perhaps 6 months. He does not have lightheadedness or dizziness, he has no awareness of his heart rhythm and he does not have exertional chest discomfort that he will admit. On admission here for urologic issues he was noted to be in atrial fibrillation and have some congestive heart failure findings on chest x-ray. He also has significant valvular heart disease. Echocardiography shows significant left ventricular dysfunction and severe aortic stenosis. With uncertainty as to the time course of his cardiac illness we did perform catheterization yesterday where he has severe coronary disease but nothing to explain his left ventricular dysfunction. At this point however I do not know if some of that might be old, especially in view of having prior stent placement. Our recommendation is to have an evaluation for valve replacement, but that cannot be done at this institution. He has been feeling well, he did get quite bradycardic requiring us to decrease his carvedilol. He has no shortness of breath or chest discomfort. Social History Smoking Status: Former Smoker History of Alcohol Use: No Review of Systems Respiratory: No shortness of breath Cardiac: No chest pain Inability to raise his right arm above his shoulder or use it normally Medications Cardiovascular: Item Value Date Time Carvedilol 3.125 mg 06/23/172099 (Coreg Tab) BID/PO 06/26/17 0847 Apixaban 5 mg 06/23/172099 (Eliquis Tab) BID/PO 06/26/17 0846 Aspirin 81 mg 06/20/17 0900 (Aspirin Chew) DAILY/PO 06/26/17 0846 Metoprolol 5 mg 06/19/17 1930 Tartrate Q6H PRN/IV (Lopressor Iv) Objective Vital Signs Past 12 Hours Date Time Temp Pulse Resp B/P (MAP) Pulse Ox O2 Delivery O2 Flow Rate FiO2 06/26/17 08:44 63 06/26/17 04:20 36.7 50 18 169/86 (113) 98 Room Air 06/26/17 04:00 97 Room Air 06/26/17 00:01 97 Room Air 06/25/17 22:55 36.7 52 18 143/78 (99) 99 Room Air Last Recorded Weight-Kilograms: 75.000 Physical Exam Constitutional: General Apperance: heathly-appearing Level of Distress: NAD Lungs: Respiratory effort: no dyspnea, good air movement Auscultation: no wheezing, rales/crackles on the left, rales/crackles on the right Cardiovascular: Heart Auscultation: no rubs, no gallops, II/ MILAN, II/ WSM, irregular rate rhythm Peripheral Pulses: Bruits: none appreciated Extremities: no edema Right wrist catheterization site looks good Data Laboratory Results: Last 24 Hours Test 06/25/17 11:48 06/26/17 06:53 Sodium Level 133 mmol/L Potassium Level 4.8 mmol/L Chloride Level 104 mmol/L Carbon Dioxide Level 26 mmol/L Anion Gap 3.0 mmol/L Blood Urea Nitrogen 18 mg/dl Creatinine 1.22 mg/dl 1.20 mg/dl Est Creatinine Clear Calc Drug Dose 44.3 ml/min 45.0 ml/min Estimated GFR () 65.0 66.3 Estimated GFR (Non- 56.0 57.2 BUN/Creatinine Ratio 15.1 Random Glucose 82 mg/dl Calcium Level 8.5 mg/dl Magnesium Level 2.2 mg/dl White Blood Count 5.15 K/uL Red Blood Count 4.10 M/uL Hemoglobin 12.1 g/dL Hematocrit 37.1 % Mean Corpuscular Volume 90.5 fL Mean Corpuscular Hemoglobin 29.5 pg Mean Corpuscular Hemoglobin Concent 32.6 g/dl RDW Standard Deviation 45.8 fL RDW Coefficient of Variation 13.8 % Platelet Count 195 K/uL Mean Platelet Volume 9.0 fL Activated Partial Thromboplast Time 31.9 SECONDS Partial Thromboplastin Ratio 1.2 Telemetry reviewed: Atrial fibrillation with an overall slow ventricular response Assessment and Plan 1. Aortic stenosis: He has severe aortic stenosis, to the point where he likely will need valve replacement. I do not know how long this has been known , it evidently was identified in [place] relatively recently, possibly before that as we do not have records. Our recommendation is to have evaluation for valve replacement. He and his family have determined that we can probably do that at [facility], they are working on insurance situation. We will plan on having an evaluation set up, I have made those arrangements through [facility] following discharge. 2. Atrial fibrillation: I do not know how long he has had atrial fibrillation, it could be recent or could be long-standing. His rate is well controlled, in fact it is too slow forcing us to reduce his carvedilol. He was not on anticoagulation as an outpatient. I would recommend continuing Eliquis 5 mg twice daily, which she seems to be tolerating well. 3. Cardiomyopathy: He has at least a moderate cardiomyopathy with ejection fraction 35-40%. This may be related to his aortic stenosis, however he has wall motion abnormalities and conduction abnormalities so some of it could be due to ischemic heart disease and we do not have prior records to make that determination. He is not on medical therapy for his cardiomyopathy, his blood pressure is elevated and his heart rate was slow on carvedilol 6.25 mg twice daily. I am going to continue 3.125 mg twice daily. 4. Right arm weakness and dysarthria: His niece reports that his speech is much more difficult to understand over the last 6-12 months and he notes difficulty using his arm over that same period of time. Although he attributes this to some type of shoulder injury I was concerned that it could have been from a stroke. On CT scanning he did have several lacunar strokes, I do not know that this would cause these neurologic findings however. In any case he should be on anticoagulation as well as aspirin for his underlying atrial fibrillation and coronary disease and this would be treatment for small vessel disease as well. Thank you for allowing me to participate in his care.
--- NOTE | 2017-06-26 12:39 | Hospitalist Progress Note ---
Hospitalist Progress Note Date of Service Jun 26, 2017. Subjective Pt evaluation today including: conversation w/ patient, physical exam, lab review, review of inpatient medication list Voiding: arambula catheter in place Patient sitting in bedside chair. Feeling well. Anxious for discharge. Eating and drinking OK. Denies any complaints/questions/concerns. Transfer to med/surg today. Patient denies any fever, chills, sweats, lightheadedness, dizziness, vision changes, CP, palpitations, edema, SOB, wheezing, cough, abdominal pain, nausea, vomiting, diarrhea, urinary symptoms, melena, numbness/tingling, weakness, muscle/joint pain, anxiety/depression, active bleeding, or new skin discoloration/changes. Medications Current Inpatient Medications Medications (Trade) Dose Ordered Sig/Brittany Route Start Time Stop Time Status Last Admin Dose Admin Acetaminophen (Tylenol Tab) 650 mg Q4H PRN PO 06/19/17 19:15 07/19/17 19:14 06/23/17 15:44 650 MG Al Hydrox/Mg Hydrox/Simethicone (Maalox Max Susp) 15 ml Q4H PRN PO 06/19/17 19:15 07/19/17 19:14 Magnesium Hydroxide (Milk Of Magnesia Susp) 30 ml Q12H PRN PO 06/19/17 19:15 07/19/17 19:14 Ondansetron HCl (Zofran Inj) 4 mg Q6H PRN IV 06/19/17 19:15 07/19/17 19:14 Nitroglycerin (Nitrostat Tab) 0.4 mg UD PRN SL 06/19/17 19:15 07/19/17 19:14 Morphine Sulfate (MoRPHine SULFATE INJ) 2 mg Q30M PRN IV 06/19/17 19:15 07/03/17 19:14 Polyethylene (Miralax Powder Packet) 17 gm DAILY PRN PO 06/19/17 19:15 07/19/17 19:14 Albuterol/ Ipratropium (Duoneb) 3 ml Q4H PRN INH 06/19/17 19:15 07/19/17 19:14 06/24/17 14:30 3 ML Hydralazine HCl (HydrALAZINE INJ) 10 mg Q6H PRN IV. 06/19/17 19:15 07/19/17 19:14 Metoprolol Tartrate (Lopressor Iv) 5 mg Q6H PRN IV 06/19/17 19:30 07/19/17 19:29 Aspirin (Aspirin Chew) 81 mg DAILY PO 06/20/17 09:00 07/20/17 08:59 06/26/17 08:46 81 MG Guaifenesin (Mucinex Contr Rel Tab) 1,200 mg Q12 PO 06/22/17 21:00 07/22/17 20:59 06/26/17 08:47 1,200 MG Carvedilol (Coreg Tab) 3.125 mg BID PO 06/23/17 21:00 07/23/17 20:59 06/26/17 08:47 3.125 MG Apixaban (Eliquis Tab) 5 mg BID PO 06/23/17 21:00 07/23/17 20:59 06/26/17 08:46 5 MG Levalbuterol (Xopenex 1.25MG/ 3ML Neb) 1.25 mg Q6R PRN INH 06/25/17 11:30 07/22/17 11:14 Levofloxacin (Levaquin Tab) 750 mg Q48H PO 06/26/17 18:00 06/26/17 18:01 Objective Vital Signs Date Time Temp Pulse Resp B/P (MAP) Pulse Ox O2 Delivery O2 Flow Rate FiO2 06/26/17 11:20 36.6 44 20 132/67 (88) 98 Room Air 06/26/17 08:44 63 06/26/17 08:00 Room Air 06/26/17 04:20 36.7 50 18 169/86 (113) 98 Room Air 06/26/17 04:00 97 Room Air 06/26/17 00:01 97 Room Air 06/25/17 22:55 36.7 52 18 143/78 (99) 99 Room Air 06/25/17 20:15 36.7 52 20 134/73 (93) 98 Room Air 06/25/17 20:00 100 Room Air 06/25/17 16:19 36.7 52 20 167/81 (109) 100 Room Air 06/25/17 16:00 Room Air Physical Exam General Appearance: no apparent distress Eyes: normal inspection, PERRL ENT: hearing grossly normal Neck: supple Respiratory/Chest: lungs clear, no respiratory distress, no accessory muscle use, + decreased breath sounds (throughout ) Cardiovascular: + bradycardia, + systolic murmur, + irregularly irregular Abdomen: normal bowel sounds, non tender, soft Extremities: no pedal edema, no calf tenderness Neurologic/Psychiatric: alert, normal mood/affect, oriented x 3 Skin: normal color, warm/dry, no rash Laboratory Results Last 24 Hours Test 06/26/17 06:53 White Blood Count 5.15 K/uL Red Blood Count 4.10 M/uL Hemoglobin 12.1 g/dL Hematocrit 37.1 % Mean Corpuscular Volume 90.5 fL Mean Corpuscular Hemoglobin 29.5 pg Mean Corpuscular Hemoglobin Concent 32.6 g/dl RDW Standard Deviation 45.8 fL RDW Coefficient of Variation 13.8 % Platelet Count 195 K/uL Mean Platelet Volume 9.0 fL Activated Partial Thromboplast Time 31.9 SECONDS Partial Thromboplastin Ratio 1.2 Creatinine 1.20 mg/dl Est Creatinine Clear Calc Drug Dose 45.0 ml/min Estimated GFR () 66.3 Estimated GFR (Non- 57.2 Assessment and Plan Patient is a pleasant 81 y/o male, with PMHx of urinary retention w/ chronic Arambula, who presented to the ED because of a cough. CAD, h/o cardiac stenting in ~2009, chronic a.fib- rate controlled: - Monitoring on tele- no acute events overnights- transfer to med/surg - Trend cardiac enzymes- peak trop 0.063 - Coreg 3.125 mg BID, Eliquis 5 mg BID, ASA 81 mg daily - Overnight sleep study- negative - HgbA1c 5.0%, lipid panel reviewed, TSH WNL - ECHO- EF 35-40%. Mid to apical septum akinesis. Severe inferior hypokinesis. Moderate inferolateral hypokinesis. Moderate pulmonary HTN. Grade II diastolic dysfunction - Cardiology consulted, appreciate recommendations- s/p cardiac cath on 06/21- severe single vessel disease, aortic valve to be replaced by tertiary care center Severe aortic stenosis: Cardiology arranging referral to tertiary center ([facility]) for replacement Combined systolic/diastolic CHF- STABLE: - Treated w/ IV Lasix - Monitoring I&Os and daily weights - ECHO- EF 35-40%, grade II diastolic dysfunction Multifocal PNA- IMPROVING: - Continue Levaquin 750 mg IV q48h (renal dosing)- last day of treatment on - Xopenex QID and PRN for SOB/wheezing - BCx NGTD, sputum culture w/ normal tamera, MRSA swab negative - Incentive spirometry, flutter valve, Mucinex - Recommend 4 week f/u x-ray to ensure resolution 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
[2017-06-26] MEDS ORDERED: LEVOFLOXACIN 750 MG TAB PO SCH (18:00)
[2017-06-27 07:11] VITALS: BP 161/69; PULSE 48; TEMP 36.5; O2SAT 98
[2017-06-27 08:15] VITALS: O2SAT 98
[2017-06-27] MEDS: GUAIFENESIN 600 MG TABCR PO SCH ×2 (08:51→21:35)
[2017-06-27] MEDS: ASPIRIN 81 MG CHEW PO SCH (08:51)
[2017-06-27] MEDS: APIXABAN 2.5 MG TAB PO SCH ×2 (08:51→21:36)
[2017-06-27] MEDS: CARVEDILOL 3.125 MG TAB PO SCH ×2 (08:51→21:00)
[2017-06-27] MEDS ORDERED: ASPCH81 PO (12:21)
[2017-06-27] MEDS ORDERED: ELQ25 PO (12:21)
[2017-06-27] MEDS ORDERED: CRG3125 PO (12:21)
--- NOTE | 2017-06-27 14:14 | Discharge Instructions ---
Discharge Instructions Date of Service Jun 27, 2017. Admission Reason for Admission: A-Fib, Pna Discharge Discharge Diagnosis / Problem: PNA, a.fib. CHF Discharge Goals Goal(s): Decrease discomfort, Improve function, Increase independence, Improve disease control, Learn about illness, Diagnostic testing, Therapeutic intervention, Prevent Disease Progression Activity Recommendations Activity Level: Assistance Required Therapies: Physical Therapy, Occupational Therapy . Additional Information Patient informed of condition: Yes Advance Directives: No DNR: Yes Level of Care: Acute Rehab Communicable Disease: No Prognosis: Stable Haque Catheter: Yes Instructions / Follow-Up Instructions / Follow-Up CAD, h/o cardiac stenting in ~2009, chronic a.fib- rate controlled: Coreg 3.125 mg BID, Eliquis 5 mg BID, ASA 81 mg daily Severe aortic stenosis: Cardiology arranging referral to tertiary center ([facility] [place]) for replacement Combined systolic/diastolic CHF- STABLE Multifocal PNA- RESOLVED: - Treatment completed - Recommend 4 week (~07/17) f/u x-ray to ensure resolution Lacuna stroke: - Continue ASA and Eliquis, BP control - Lipid panel reviewed- no indication for statin therapy HTN: Coreg 3.125 mg BID Mild hyponatremia- STABLE Urinary retention w/ indwelling Haque- noted h/o colon cancer s/p resection- noted DVT prophylaxis: Eliquis BID Code status: LEVEL V, DNR Dispo: Discharge to [facility] FOLLOW-UPS: Follow-up with [facility] provider within 24-48 hrs Please follow-up with your PCP within 5-7 days after discharge from [facility] Please follow-up with Cardiology/[facility] [place] as instructed by Dr. Waters Please follow-up/keep all of your subspecialty appointments Current Hospital Diet Patient's current hospital diet: AHA Diet (Heart Healthy) Discharge Diet Recommended Diet: AHA Diet (Heart Healthy), Low Sodium Diet (2gm Na) Pending Studies Studies pending at discharge: no Physician Orders On Transfer Special Precautions: Fall precautions Dressing Changes: None IV Therapy: None Vital Signs: Routine POLST Discussion: without POLST completion Laboratory Results Hemoglobin A1c Test 06/20/17 03:30 Range/Units Estimated Average Glucose 97 mg/dl Hemoglobin A1c 5.0 4.5-5.6 % Lipid Panel Test 06/20/17 03:30 Range/Units Triglycerides Level 49 0-150 mg/dl Cholesterol Level 101 0-200 mg/dl HDL Cholesterol 58 mg/dl Cholesterol/HDL Ratio 1.7 LDL Cholesterol, Calculated 33 mg/dl Medical Emergencies . Who to Call and When: Medical Emergencies: If at any time you feel your situation is an emergency, please call 911 immediately. . Non-Emergent Contact Non-Emergency issues call your: Primary Care Provider, [employer] Call Non-Emergent contact if: you have any medication questions . . "Provider Documentation" section prepared by Mitzy Rosas. . Core Measure Problem Core Measures: None
--- NOTE | 2017-06-27 14:15 | Discharge Summary ---
Discharge Summary Date of Service Jun 27, 2017. Discharge Summary Admission Date: Jun 19, 2017 at 19:19 Discharge Date: Jun 27, 2017 Discharge Disposition: Rehab Principal Diagnosis: A.fib Problems/Secondary Diagnoses: CAD h/o cardiac stenting in ~2009 chronic a.fib pulmonary HTN Severe aortic stenosis Combined systolic/diastolic CHF Multifocal PNA Lacuna stroke HTN mild hyponatremia Urinary retention w/ indwelling Haque h/o colon cancer s/p resection Procedures: TWO VIEW CHEST CLINICAL HISTORY: Cough. FINDINGS: AP and lateral chest radiographs are obtained. No prior studies are available for comparison at the time of dictation. The AP views degraded by patient rotation. The heart is enlarged. There diffuse bilateral airspace opacities, greatest in the left upper and right lower lobes. No large pleural effusion is identified. There is no pneumothorax. The skeletal structures are osteopenic. Bony thorax appears intact. IMPRESSION: 1. Cardiomegaly. 2. There are multifocal bilateral airspace opacities. Is present pulmonary edema and/or multifocal pneumonia. Clinical and laboratory correlation will be required. Radiographic follow-up to resolution is recommended. Electronically signed by: Lion Patterson M.D. 06/19/2017 5:52 PM Dictated Date/Time: 06/19/2017 5:50 PM The status of this report is Signed. Draft = Not yet reviewed or approved by Radiologist. Signed = Reviewed and approved by Radiologist HEAD COMBO CLINICAL HISTORY: Atrial fibrillation. Right arm weakness. COMPARISON STUDY: No previous studies for comparison. TECHNIQUE: Axial images of the head were obtained before and after intravenous administration 94 cc Optiray 320 IV. FINDINGS: No acute intracranial hemorrhage, midline shift or mass effect is present. There is moderate atrophy with ventricular and sulcal enlargement. The basilar cisterns are patent. There are no extra axial collections. No intracranial mass or pathologic enhancement is present. Note is made of a 1.4 cm old lacunar infarct within the left cerebellar hemisphere. An 8 mm hypodensity within left basal ganglia could reflect an old lacunar infarct or prominent perivascular space. There are no CT findings to suggest acute dural sinus thrombosis or acute territorial infarct. There is mild mucosal thickening of the sinuses with a small left maxillary sinus air-fluid level. IMPRESSION: 1. No acute intracranial findings. 2. No intracranial mass or pathologic enhancement. 3. Moderate atrophy and moderate small vessel disease. 4. 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 5. Mild sinus mucosal thickening and a small left maxillary sinus air-fluid level. Electronically signed by: Willard Malloy M.D. 06/20/2017 4:36 PM Dictated Date/Time: 06/20/2017 4:32 PM The status of this report is Signed. Draft = Not yet reviewed or approved by Radiologist. Signed = Reviewed and approved by Radiologist CHEST ONE VIEW PORTABLE HISTORY: 81 years-old Male assess pneumonia acute atrial fibrillation with pneumonia COMPARISON: Chest radiograph 06/19/2017 TECHNIQUE: Portable AP view of the chest FINDINGS: Cardiac silhouette is mildly enlarged, unchanged. Tortuosity of the thoracic aorta. No pneumothorax. Trace bilateral pleural effusions with persistent patchy bibasilar opacities. There is slight improvement of the airspace opacities within the left midlung. Decreased pulmonary vascular congestion. Bones of the chest appear grossly intact. Degenerative changes are seen within the bilateral shoulders. IMPRESSION: 1. Persistent patchy bibasilar opacities with improved aeration of the left midlung. 2. Trace bilateral pleural effusions. 3. Cardiomegaly with decreased pulmonary vascular congestion. The above report was generated using voice recognition software. It may contain grammatical, syntax or spelling errors. Electronically signed by: Stanley Pittman M.D. 06/22/2017 2:33 PM Dictated Date/Time: 06/22/2017 2:30 PM The status of this report is Signed. Draft = Not yet reviewed or approved by Radiologist. Signed = Reviewed and approved by Radiologist ECHOCARDIOGRAM: Interpretation Summary * Name: JAGDEEP NOLASCO Study Date: 06/20/2017 07:35 AM BP: 152/92 mmHg * Patient Location: [facility]\S\2 HR: 69 * : 1935 (M/d/yyyy) Gender: Male Height: 66 in * Age: 81 yrs Ethnicity: [place] Weight: 164 lb * Ordering Physician: Mitzy Rosas * Referring Physician: Self, Referred * Performed By: Ashanti Gaitan RCS * * Reason For Study: A-FIB * BSA: 1.8 m2 * -- Conclusions -- * 1. Normal LV size. Mild concentric LVH. * 2. LVEF 35-40%. Mid to apical septum akinetic. Severe inferior hypokinesis. Moderate inferolateral hypokinesis. * 3. Normal RV size and function. * 4. Severe calcific aortic stenosis. Mild to moderate aortic regurgitation. * 5. Mild mitral regurgitation. * 6. Moderate pulmonary hypertension. Est PASP 55-60 mmHg. Normal RA pressures. * 7. Grade II diastolic dysfunction. * 8. No prior studies for comparison. Procedure Details * A complete two-dimensional transthoracic echocardiogram was performed (2D, M- mode, Doppler and color flow Doppler). Left Ventricle * The left ventricle is grossly normal size. * There is mild concentric left ventricular hypertrophy. * Ejection Fraction = 35-40%. * Mid to apical septum akinetic. Severe inferior hypokinesis. Moderate inferolateral hypokinesis. Right Ventricle * The right ventricle is grossly normal size. * The right ventricular systolic function is normal as assessed by tricuspid annular plane systolic excursion (TAPSE) (normal >1.5 cm). Atria * The left atrium is mildly dilated. * Borderline right atrial enlargement. * No ASD detected; PFO is not assessed. Mitral Valve * Posterior leaflet restricted * There is mild mitral regurgitation. Tricuspid Valve * There is trace tricuspid regurgitation. * Right ventricular systolic pressure is elevated at 50-60mmHg. Aortic Valve * Aortic valve calcified, thickned, restricted * Severe valvular aortic stenosis. * Mild to moderate aortic regurgitation. Pulmonic Valve * The pulmonary valve is inadequately visualized, but the Doppler data is adequate for interpretation. * There is no pulmonic valvular stenosis. * Mild pulmonic valvular regurgitation. Great Vessels * The aortic root and proximal ascending aorta are normal sized. Pericardium/Pleural * There is no pericardial effusion. Great Vessels * Normal inferior vena cava size and collapsability with sniff indicates a normal right atrial pressure of 3 mmHg Left Ventricular Diastolic Function * Diastolic dysfunction, Grade II, consistent with elevated left atrial pressure. Procedure Note Procedure Date Jun 21, 2017. Pre-Procedure Diagnosis Valvular Disease, Cardiomyopathy AUC Score 7 Post-Procedure Diagnosis Severe CAD, Normal Intracardiac Pressures Procedure(s) Performed Coronary Angiography, Left Heart Cath, Right Heart Cath, Ultrasound Guided Vascular Access Surgeon/President Kris Slat Pickler(s) Norberto Estimated Blood Loss 15 Medication(s) Fentanyl, Heparin, Nicardipine, Nitroglycerin, Versed, Lidocaine 1% Summary of Findings Indication: New cardiomyopathy, severe aortic stenosis Consultations: Cardiology- Dr. Waters Medication Reconciliation New Medications: Apixaban (Eliquis) 2.5 Mg Tab 5 MG PO BID for 30 Days, #120 TAB Aspirin (Aspirin Low Strength) 81 Mg Chew 81 MG PO DAILY for 30 Days Carvedilol (Carvedilol) 3.125 Mg Tab 3.125 MG PO BID for 30 Days, #60 TAB Continued Medications: Acetaminophen (Tylenol) 325 Mg Tab 650 MG PO BID PRN for Pain or Fever, TAB Discharge Exam Review of Systems: Constitutional: No fever, No chills, No sweats, No weakness, No fatigue Eyes: No worsening of vision ENT: No hearing loss Respiratory: No cough, No shortness of breath, No hemoptysis Cardiovascular: No chest pain, No edema, No palpitations Abdomen: No pain, No nausea, No vomiting, No diarrhea, No constipation Musculoskeletal: No joint pain, No muscle pain, No swelling, No calf pain Genitourinary - Male: No hematuria Neurologic: No weakness, No numbness/tingling Psychiatric: No depression symptoms, No anxiety Endocrine: No fatigue Hematologic / Lymphatic: No abnormal bleeding/bruising Integumentary: No rash, No itch, No new/changing skin lesions Physical Exam: General Appearance: no apparent distress Eyes: normal inspection, PERRL ENT: hearing grossly normal Neck: supple Respiratory/Chest: no respiratory distress, no accessory muscle use, + decreased breath sounds (throughout ) Cardiovascular: + systolic murmur, + irregularly irregular (rate controlled) Abdomen / GI: normal bowel sounds, non tender, soft Extremities: no calf tenderness, no pedal edema Neurologic/Psychiatric: alert, normal mood/affect, oriented x 3 Skin: normal color, warm/dry, no rash Hospital Course Patient is a pleasant 81 y/o male, with PMHx of urinary retention w/ chronic Haque, who presented to the ED because of a cough. CAD, h/o cardiac stenting in ~2009, chronic a.fib- rate controlled: - Monitoring on tele- no acute events overnights- transfer to med/surg - Trend cardiac enzymes- peak trop 0.063 - Coreg 3.125 mg BID, Eliquis 5 mg BID, ASA 81 mg daily - Overnight sleep study- negative - HgbA1c 5.0%, lipid panel reviewed, TSH WNL - ECHO- EF 35-40%. Mid to apical septum akinesis. Severe inferior hypokinesis. Moderate inferolateral hypokinesis. Moderate pulmonary HTN. Grade II diastolic dysfunction - Cardiology consulted, appreciate recommendations- s/p cardiac cath on 06/21- severe single vessel disease, aortic valve to be replaced by tertiary care center Severe aortic stenosis: Cardiology arranging referral to tertiary center ([facility] [place]) for replacement Combined systolic/diastolic CHF- STABLE: - Treated w/ IV Lasix - Monitoring I&Os and daily weights - ECHO- EF 35-40%, grade II diastolic dysfunction Multifocal PNA- RESOLVED: - Continue Levaquin 750 mg IV q48h (renal dosing)- last day of treatment on - Xopenex QID and PRN for SOB/wheezing - BCx NGTD, sputum culture w/ normal tamera, MRSA swab negative - Incentive spirometry, flutter valve, Mucinex - Recommend 4 week f/u x-ray to ensure resolution 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 1.4 cm old lacunar infarct w/in the L cerebellar hemisphere - Continue ASA and Eliquis, BP control - Lipid panel reviewed- no indication for statin therapy HTN- STABLE: - Coreg 3.125 mg BID - IV Hydralazine PRN Mild hyponatremia- STABLE: Continue to monitor, follow PRP Urinary retention w/ indwelling Haque- noted h/o colon cancer s/p resection- noted DVT prophylaxis: Eliquis BID Code status: LEVEL V, DNR Dispo: Discharge to [facility] Total Time Spent: Greater than 30 minutes This includes examination of the patient, discharge planning, medication reconciliation, and communication with other providers. Discharge Instructions Please refer to the electronic Patient Visit Report (Discharge Instructions) for additional information. Follow-Up Follow-up with [facility] provider within 24-48 hours Please follow-up with your PCP within 5-7 days after discharge from [facility] Please follow-up with Cardiology/[facility] as instructed by Dr. Waters Please follow-up/keep all of your subspecialty appointments Additional Copies To Valerie Mcmullen
--- NOTE | 2017-06-27 14:17 | Hospitalist Progress Note ---
Hospitalist Progress Note Date of Service Jun 27, 2017. Subjective Pt evaluation today including: conversation w/ patient, physical exam, chart review, review of inpatient medication list Voiding: arambula catheter in place Patient resting in bed. Eating and drinking OK. No new issues. Waiting for placement. Patient denies any fever, chills, sweats, lightheadedness, dizziness, vision changes, CP, palpitations, edema, SOB, wheezing, cough, abdominal pain, nausea, vomiting, diarrhea, urinary symptoms, melena, numbness/tingling, weakness, muscle/joint pain, anxiety/depression, active bleeding, or new skin discoloration/changes. Medications Current Inpatient Medications Medications (Trade) Dose Ordered Sig/Brittany Route Start Time Stop Time Status Last Admin Dose Admin Acetaminophen (Tylenol Tab) 650 mg Q4H PRN PO 06/19/17 19:15 07/19/17 19:14 06/23/17 15:44 650 MG Al Hydrox/Mg Hydrox/Simethicone (Maalox Max Susp) 15 ml Q4H PRN PO 06/19/17 19:15 07/19/17 19:14 Magnesium Hydroxide (Milk Of Magnesia Susp) 30 ml Q12H PRN PO 06/19/17 19:15 07/19/17 19:14 Ondansetron HCl (Zofran Inj) 4 mg Q6H PRN IV 06/19/17 19:15 07/19/17 19:14 Nitroglycerin (Nitrostat Tab) 0.4 mg UD PRN SL 06/19/17 19:15 07/19/17 19:14 Morphine Sulfate (MoRPHine SULFATE INJ) 2 mg Q30M PRN IV 06/19/17 19:15 07/03/17 19:14 Polyethylene (Miralax Powder Packet) 17 gm DAILY PRN PO 06/19/17 19:15 07/19/17 19:14 Albuterol/ Ipratropium (Duoneb) 3 ml Q4H PRN INH 06/19/17 19:15 07/19/17 19:14 06/24/17 14:30 3 ML Hydralazine HCl (HydrALAZINE INJ) 10 mg Q6H PRN IV. 06/19/17 19:15 07/19/17 19:14 Metoprolol Tartrate (Lopressor Iv) 5 mg Q6H PRN IV 06/19/17 19:30 07/19/17 19:29 Aspirin (Aspirin Chew) 81 mg DAILY PO 06/20/17 09:00 07/20/17 08:59 06/27/17 08:51 81 MG Guaifenesin (Mucinex Contr Rel Tab) 1,200 mg Q12 PO 06/22/17 21:00 07/22/17 20:59 06/27/17 08:51 1,200 MG Carvedilol (Coreg Tab) 3.125 mg BID PO 06/23/17 21:00 07/23/17 20:59 06/27/17 08:51 3.125 MG Apixaban (Eliquis Tab) 5 mg BID PO 06/23/17 21:00 07/23/17 20:59 06/27/17 08:51 5 MG Levalbuterol (Xopenex 1.25MG/ 3ML Neb) 1.25 mg Q6R PRN INH 06/25/17 11:30 07/22/17 11:14 Objective Vital Signs Date Time Temp Pulse Resp B/P (MAP) Pulse Ox O2 Delivery O2 Flow Rate FiO2 06/27/17 08:15 98 Room Air 06/27/17 07:11 36.5 48 20 161/69 (99) 98 Room Air 06/27/17 00:00 Room Air 06/26/17 23:42 36.6 50 18 153/74 (100) 98 Room Air 06/26/17 16:00 Room Air 06/26/17 14:45 36.8 48 20 162/73 (102) 98 Room Air Physical Exam General Appearance: no apparent distress Eyes: normal inspection, PERRL ENT: hearing grossly normal Neck: supple Respiratory/Chest: no respiratory distress, no accessory muscle use, + decreased breath sounds (throughout) Cardiovascular: + systolic murmur, + irregularly irregular (rate controlled) Abdomen: normal bowel sounds, non tender, soft Extremities: no pedal edema, no calf tenderness Neurologic/Psychiatric: alert, normal mood/affect, oriented x 3 Skin: normal color, warm/dry, no rash Laboratory Results Last 24 Hours Test 06/27/17 06:59 Activated Partial Thromboplast Time 32.0 SECONDS Partial Thromboplastin Ratio 1.2 Assessment and Plan Patient is a pleasant 81 y/o male, with PMHx of urinary retention w/ chronic Arambula, who presented to the ED because of a cough. CAD, h/o cardiac stenting in ~2009, chronic a.fib- rate controlled: - Monitoring on tele- no acute events overnights- transfer to med/surg - Trend cardiac enzymes- peak trop 0.063 - Coreg 3.125 mg BID, Eliquis 5 mg BID, ASA 81 mg daily - Overnight sleep study- negative - HgbA1c 5.0%, lipid panel reviewed, TSH WNL - ECHO- EF 35-40%. Mid to apical septum akinesis. Severe inferior hypokinesis. Moderate inferolateral hypokinesis. Moderate pulmonary HTN. Grade II diastolic dysfunction - Cardiology consulted, appreciate recommendations- s/p cardiac cath on 06/21- severe single vessel disease, aortic valve to be replaced by tertiary care center Severe aortic stenosis: Cardiology arranging referral to tertiary center ([facility] [place]) for replacement Combined systolic/diastolic CHF- STABLE: - Treated w/ IV Lasix - Monitoring I&Os and daily weights - ECHO- EF 35-40%, grade II diastolic dysfunction Multifocal PNA- RESOLVED: - Continue Levaquin 750 mg IV q48h (renal dosing)- last day of treatment on - Xopenex QID and PRN for SOB/wheezing - BCx NGTD, sputum culture w/ normal tamera, MRSA swab negative - Incentive spirometry, flutter valve, Mucinex - Recommend 4 week f/u x-ray to ensure resolution 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
[2017-06-27 15:27] VITALS: BP 172/84; PULSE 55; TEMP 36.7; O2SAT 100
[2017-06-27 21:34] VITALS: BP 161/101; PULSE 48
[2017-06-27 23:00] VITALS: BP 163/93; PULSE 49; TEMP 36.7; O2SAT 99
[2017-06-28 04:48] VITALS: BP 169/77; PULSE 68
[2017-06-28 06:45] LABS: HEMATOCRIT 37.4 % (42-52); HEMOGLOBIN 12.5 g/dL (14.0-18.0); MEAN CELL VOLUME 89.3 fL (80-100); MEAN CORPUSCULAR HEMOGLOBIN 29.8 pg (25-34); MEAN CORPUSCULAR HGB CONC 33.4 g/dl (32-36); PLATELET COUNT 215 K/uL (130-400); RED CELL DISTRIBUTION WIDTH CV 13.8 % (11.5-14.5); RED CELL DISTRIBUTION WIDTH SD 45.4 fL (36.4-46.3); WHITE BLOOD COUNT 5.69 K/uL (4.8-10.8)
[2017-06-28 06:58] LABS: PTT PATIENT 32.1 SECONDS (21.0-31.0)
[2017-06-28 07:17] LABS: CREATININE 1.23 mg/dl (0.60-1.40)
[2017-06-28 07:47] VITALS: O2SAT 98
[2017-06-28 07:56] VITALS: BP 150/72; PULSE 55; TEMP 36.3; O2SAT 97
[2017-06-28] MEDS: APIXABAN 2.5 MG TAB PO SCH (08:04)
[2017-06-28] MEDS: CARVEDILOL 3.125 MG TAB PO SCH (08:04)
[2017-06-28] MEDS: GUAIFENESIN 600 MG TABCR PO SCH (08:05)
[2017-06-28] MEDS: ASPIRIN 81 MG CHEW PO SCH (08:07)
[2017-06-28 08:11] VITALS: PULSE 60
--- NOTE | 2017-06-28 14:21 | Hospitalist Progress Note ---
Hospitalist Progress Note Date of Service Jun 28, 2017. Subjective Pt evaluation today including: conversation w/ patient, physical exam, lab review, review of inpatient medication list Voiding: arambula catheter in place Patient resting in bed. Feeling well. Anxious for discharge. Eating and drinking OK. No new issues. Patient denies any fever, chills, sweats, lightheadedness, dizziness, vision changes, CP, palpitations, edema, SOB, wheezing, cough, abdominal pain, nausea, vomiting, diarrhea, urinary symptoms, melena, numbness/tingling, weakness, muscle/joint pain, anxiety/depression, active bleeding, or new skin discoloration/changes. Medications Current Inpatient Medications Medications (Trade) Dose Ordered Sig/Brittany Route Start Time Stop Time Status Last Admin Dose Admin Acetaminophen (Tylenol Tab) 650 mg Q4H PRN PO 06/19/17 19:15 07/19/17 19:14 06/23/17 15:44 650 MG Al Hydrox/Mg Hydrox/Simethicone (Maalox Max Susp) 15 ml Q4H PRN PO 06/19/17 19:15 07/19/17 19:14 Magnesium Hydroxide (Milk Of Magnesia Susp) 30 ml Q12H PRN PO 06/19/17 19:15 07/19/17 19:14 Ondansetron HCl (Zofran Inj) 4 mg Q6H PRN IV 06/19/17 19:15 07/19/17 19:14 Nitroglycerin (Nitrostat Tab) 0.4 mg UD PRN SL 06/19/17 19:15 07/19/17 19:14 Morphine Sulfate (MoRPHine SULFATE INJ) 2 mg Q30M PRN IV 06/19/17 19:15 07/03/17 19:14 Polyethylene (Miralax Powder Packet) 17 gm DAILY PRN PO 06/19/17 19:15 07/19/17 19:14 Albuterol/ Ipratropium (Duoneb) 3 ml Q4H PRN INH 06/19/17 19:15 07/19/17 19:14 06/24/17 14:30 3 ML Hydralazine HCl (HydrALAZINE INJ) 10 mg Q6H PRN IV. 06/19/17 19:15 07/19/17 19:14 Metoprolol Tartrate (Lopressor Iv) 5 mg Q6H PRN IV 06/19/17 19:30 07/19/17 19:29 Aspirin (Aspirin Chew) 81 mg DAILY PO 06/20/17 09:00 07/20/17 08:59 06/28/17 08:07 81 MG Guaifenesin (Mucinex Contr Rel Tab) 1,200 mg Q12 PO 06/22/17 21:00 07/22/17 20:59 06/28/17 08:05 1,200 MG Carvedilol (Coreg Tab) 3.125 mg BID PO 06/23/17 21:00 07/23/17 20:59 06/28/17 08:04 3.125 MG Apixaban (Eliquis Tab) 5 mg BID PO 06/23/17 21:00 07/23/17 20:59 06/28/17 08:04 5 MG Levalbuterol (Xopenex 1.25MG/ 3ML Neb) 1.25 mg Q6R PRN INH 06/25/17 11:30 07/22/17 11:14 Objective Vital Signs Date Time Temp Pulse Resp B/P (MAP) Pulse Ox O2 Delivery O2 Flow Rate FiO2 06/28/17 08:11 60 06/28/17 07:56 36.3 55 19 150/72 (98) 97 Room Air 06/28/17 07:47 98 Room Air 06/28/17 04:48 68 169/77 (107) 06/28/17 00:00 Room Air 06/27/17 23:00 36.7 49 20 163/93 (116) 99 Room Air 06/27/17 21:34 48 161/101 (121) 06/27/17 16:00 Room Air 06/27/17 15:27 36.7 55 16 172/84 (113) 100 Room Air Physical Exam General Appearance: no apparent distress Eyes: normal inspection, PERRL ENT: hearing grossly normal Neck: supple Respiratory/Chest: no respiratory distress, no accessory muscle use, + decreased breath sounds (throughout ) Cardiovascular: + systolic murmur, + irregularly irregular (controlled rate ) Abdomen: normal bowel sounds, non tender, soft Extremities: no pedal edema, no calf tenderness Neurologic/Psychiatric: alert, normal mood/affect, oriented x 3 Skin: normal color, warm/dry, no rash Laboratory Results Last 24 Hours Test 06/28/17 06:22 White Blood Count 5.69 K/uL Red Blood Count 4.19 M/uL Hemoglobin 12.5 g/dL Hematocrit 37.4 % Mean Corpuscular Volume 89.3 fL Mean Corpuscular Hemoglobin 29.8 pg Mean Corpuscular Hemoglobin Concent 33.4 g/dl RDW Standard Deviation 45.4 fL RDW Coefficient of Variation 13.8 % Platelet Count 215 K/uL Mean Platelet Volume 9.0 fL Activated Partial Thromboplast Time 32.1 SECONDS Partial Thromboplastin Ratio 1.2 Creatinine 1.23 mg/dl Est Creatinine Clear Calc Drug Dose 43.9 ml/min Estimated GFR () 64.3 Estimated GFR (Non- 55.5 Assessment and Plan Patient is a pleasant 81 y/o male, with PMHx of urinary retention w/ chronic Arambula, who presented to the ED because of a cough. CAD, h/o cardiac stenting in ~2009, chronic a.fib- rate controlled: - Monitoring on tele- no acute events overnights- transferred to med/surg - Trend cardiac enzymes- peak trop 0.063 - Coreg 3.125 mg BID, Eliquis 5 mg BID, ASA 81 mg daily - Overnight sleep study- negative - HgbA1c 5.0%, lipid panel reviewed, TSH WNL - ECHO- EF 35-40%. Mid to apical septum akinesis. Severe inferior hypokinesis. Moderate inferolateral hypokinesis. Moderate pulmonary HTN. Grade II diastolic dysfunction - Cardiology consulted, appreciate recommendations- s/p cardiac cath on 06/21- severe single vessel disease, aortic valve to be replaced by tertiary care center Severe aortic stenosis: Cardiology arranging referral to tertiary center ([facility] [place]) for replacement Combined systolic/diastolic CHF- STABLE: - Treated w/ IV Lasix - Monitoring I&Os and daily weights - ECHO- EF 35-40%, grade II diastolic dysfunction Multifocal PNA- RESOLVED: - Continue Levaquin 750 mg IV q48h (renal dosing)- last day of treatment on - Xopenex QID and PRN for SOB/wheezing - BCx NGTD, sputum culture w/ normal tamera, MRSA swab negative - Incentive spirometry, flutter valve, Mucinex - Recommend 4 week f/u x-ray to ensure resolution 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
--- NOTE | 2017-06-28 15:14 | Discharge Instructions ---
Discharge Instructions Date of Service Jun 28, 2017. Admission Reason for Admission: A-Fib, Pna Discharge Discharge Diagnosis / Problem: atrail fibrillation, congestive heart failure, pneumonia Discharge Goals Goal(s): Decrease discomfort, Improve function, Increase independence, Improve disease control, Learn about illness, Diagnostic testing, Therapeutic intervention, Prevent Disease Progression Activity Recommendations Activity Limitations: resume your previous activity . Instructions / Follow-Up Instructions / Follow-Up New medications: Coreg 3.125 mg twice a day Eliquis 5 mg twice a day Aspirin 81 mg daily Congestive heart failure instructions: Call your Primary Care doctor if any of the following symptoms or problems start or get worse: * Shortness of breath or difficulty breathing * Wake up at night short of breath * Chest pain * Cough * Swelling of your hands, feet, or legs * More fatigued or tired with your normal activity * Palpitations - sudden fast heart beats WEIGHT * Weigh yourself every morning after using the bathroom. * Use the same scale. * Wear the same amount of clothing. * Write your weight down on a chart. * Call your Primary Care doctor if you gain more than 2-3 pounds in 1-2 days. MEDICATIONS * Use this discharge instruction sheet for medication instructions. * Take your medications at the time your doctor ordered. * Do not skip a dose of your medicines. * If you miss a dose of medicine, take it as soon as possible, but DO NOT DOUBLE A DOSE. * Read your medicine information when you get home. * Know all of the side effects of your medicine. If in doubt, ask your pharmacist * Call your Primary Care doctor's office if you have any side effects. * Be sure all of your doctors know what medicine and herbs you take (including cold, flu, and herbal medicine). Take the following with you to your follow-up doctor appointments: * Weight Chart * Medication List * List of questions Do not drink excessive alcohol, beer or wine. FOLLOW-UPS: Please follow-up with your PCP within 5-7 days Please follow-up with Cardiology/[facility] as instructed by Dr. Waters Please follow-up/keep all of your subspecialty appointments Current Hospital Diet Patient's current hospital diet: AHA Diet (Heart Healthy) Discharge Diet Recommended Diet: AHA Diet (Heart Healthy) Pending Studies Studies pending at discharge: no Laboratory Results Hemoglobin A1c Test 06/20/17 03:30 Range/Units Estimated Average Glucose 97 mg/dl Hemoglobin A1c 5.0 4.5-5.6 % Lipid Panel Test 06/20/17 03:30 Range/Units Triglycerides Level 49 0-150 mg/dl Cholesterol Level 101 0-200 mg/dl HDL Cholesterol 58 mg/dl Cholesterol/HDL Ratio 1.7 LDL Cholesterol, Calculated 33 mg/dl Medical Emergencies . Who to Call and When: Call 911 or go to the Emergency Room if: * If at any time you feel your situation is an emergency * You have tightness or pain in your chest that does not go away with rest or Nitroglycerin * You are very short of breath even with rest . Non-Emergent Contact Non-Emergency issues call your: Primary Care Provider, Candy Spreader Call Non-Emergent contact if: you have any medication questions . . "Provider Documentation" section prepared by Mitzy Rosas. .
[2017-06-28] MEDS ORDERED: APIX1TAB3 PO (15:15)
[2017-06-28] MEDS ORDERED: CRG3125 PO (15:15)
[2017-06-28] MEDS ORDERED: ASPCH81 PO (15:15)
[2017-06-28] MEDS ORDERED: ASPI1TAB83 PO (15:16)
[2017-06-28 15:38] VITALS: BP 170/82; PULSE 61; TEMP 36.4; O2SAT 99
[2017-06-28 15:43] VITALS: BP 170/82; PULSE 61; TEMP 36.4; O2SAT 99
== END 2017-06-28 17:14 | disposition home or self-care (01) | DRG 286 ==
LOC: C.EDB 15:47 → C.2T 19:19 → ENRESERV 19:32 → C.MS2W 06-26 13:53
PROVIDERS: ADMIT Internal Medicine; ATTEND Internal Medicine
PROC: B211YZZ Fluoroscopy of Multiple Coronary Arteries using Other Contrast (ICD-10-PCS; principal; 2017-06-21 14:18)
PROC: 4A023N8 Measurement of Cardiac Sampling and Pressure, Bilateral, Percutaneous Approach (ICD-10-PCS; principal; 2017-06-21 14:18)
DX: I48.2 Chronic atrial fibrillation (principal); J18.9 Pneumonia, unspecified organism; E87.1 Hypo-osmolality and hyponatremia; I11.0 Hypertensive heart disease with heart failure; I50.40 Unspecified combined systolic (congestive) and diastolic (congestive) heart failure; I25.119 Atherosclerotic heart disease of native coronary artery with unspecified angina pectoris; R33.8 Other retention of urine; I35.0 Nonrheumatic aortic (valve) stenosis; Z85.038 Personal history of other malignant neoplasm of large intestine; Z66 Do not resuscitate; Z87.01 Personal history of pneumonia (recurrent); Z87.891 Personal history of nicotine dependence; Z91.81 History of falling; Z98.890 Other specified postprocedural states; Z86.73 Personal history of transient ischemic attack (TIA), and cerebral infarction without residual deficits

== ENCOUNTER 2017-07-15 15:00 | Emergency (ER) | payer MEDICARE, OTHER ==
[~2017-07-15] VITALS: Ht 167.6 cm; Wt 75.0 kg
[~2017-07-15 15:00] MED LIST changes: +ACET-1311 PO; +APIX1TAB3 PO; +ASPI1TAB83 PO; -ASPI81TA28 PO; -ATEN-173 PO; +CRG3125 PO; -LISI20TA3 PO; -PANT40TA PO
[2017-07-15 15:10] VITALS: TEMP 36.7; Ht 167.6 cm; Wt 75.0 kg
[2017-07-15] MEDS ORDERED: DIPHTHERIA/TETANUS/PERTUSSIS 0.5 ML SYR/VIAL IM. ONE (15:30)
--- NOTE | 2017-07-15 15:35 | EMERGENCY ROOM VISIT NOTE ---
ED Visit Note First contact with patient: 15:15 CHIEF COMPLAINT: Arm lacerations HISTORY OF PRESENT ILLNESS: This 81-year-old male patient presents to the emergency department by private vehicle with complaint of lacerations to the right arm that occurred approximately 1 hour ago. Patient states that he was taking out the trash and got his right arm caught in a metal barbed wire fence. Bleeding has been mostly controlled at home. Patient's family member cleansed the wounds and wrapped with a dressing. There were no falls. The patient denies any other injuries. He is right-hand dominant. He denies any numbness, tingling, or weakness in the arm or hand. The patient rates the pain as burning and to/10. The patient's tetanus shot is not up to date. Patient is on Eliquis and a baby aspirin. REVIEW OF SYSTEMS: A 6 system review of systems was completed with positives and pertinent negatives listed in the HPI. ALLERGIES: No known allergies MEDICATIONS: Reviewed in chart. PMH: Reviewed in chart SOCIAL HISTORY: Lives at home. He is a current everyday smoker. PHYSICAL EXAM: Vital Signs: Reviewed Nurse's notes, vital signs stable. GENERAL : Pleasant and cooperative, in no acute distress, well-developed, well- nourished. Skin: There is a large superficial skin tear on the posterior- lateral aspect of the right upper arm and forearm, measuring approximately 8 cm x 14 cm. There are several small skin tears measuring approximately 2-3 cm each. There is no foreign material in the wound and it looks clean. There is minimal active bleeding. No deep structures such as tendons, bones, or significant blood vessels are seen in the base of the wound. Strength and sensation of the right upper extremity intact. Capillary refill less than two seconds with 2+ radial pulse. Normal sensation to light and sharp touch. EMERGENCY DEPARTMENT COURSE: I examined the patient. Findings consistent with multiple large skin tears, no deep lacerations. Neurovascularly intact distal to the injuries. Verbal consent was obtained to perform the procedure. Using sterile technique the wound was cleansed with Betadine and copiously irrigated with sterile saline. The area was sterilely draped. The wound was explored and was as described above. There were several jagged edges of thin skin along the edges of the wounds, this was debrided for better skin closure. Approximately 6 cm of debridement was performed. The skin tears were repaired using 18 Steri- Strip bandages to reapproximate skin tear edges as best as possible. There were some areas of exposed skin where the top layer of skin was entirely sheared off. Bacitracin ointment was applied to these areas and the entire wound was covered with Xeroform dressing. The arm was then wrapped in sterile gauze and an [place] wrap. The patient tolerated the procedure well. Hemostasis was achieved. The patient was given Td immunization. The patient was discharged home in good condition. Medication Reconciliation: I attest that I have personally reviewed the patient' s current medication list. Patient was noted to have an elevated blood pressure during his evaluation, and was referred to follow-up with his primary care provider for further evaluation. Patient was discussed with Dr. Damian, who also evaluated the patient and agrees with my assessment and plan. Problem List Medical Problems: (1) HTN (hypertension) Status: Chronic (2) Skin problems Status: Chronic (3) Stomach problems Status: Chronic (4) Ulcer Status: Resolved (5) Urinary problem Status: Chronic Current/Historical Medications Scheduled Apixaban (Eliquis), 5 MG PO BID Aspirin (Aspirin Ec), 81 MG PO DAILY Carvedilol (Coreg), 3.125 MG PO BID Scheduled PRN Acetaminophen (Tylenol), 650 MG PO BID PRN for Pain or Fever Allergies Coded Allergies: No Known Allergies (Unverified , 07/26/13) Vital Signs Date Time Temp Pulse Resp B/P (MAP) Pulse Ox O2 Delivery O2 Flow Rate FiO2 07/15/17 16:50 58 18 179/92 100 Room Air 07/15/17 15:10 36.7 74 18 163/83 97 Room Air Medications Administered Medications (Trade) Dose Ordered Sig/Brittany Route Start Time Stop Time Status Last Admin Dose Admin Diphtheria/ Pertussis/Tetanus Vacc (Adacel Inj) 0.5 ml ONCE ONCE IM. 07/15/17 15:30 07/15/17 15:31 DC 07/15/17 15:40 0.5 ML Departure Information Impression Primary Impression: Skin tear of right upper extremity Dispostion Home / Self-Care Condition GOOD Referrals No Doctor, Assigned (PCP) Patient Instructions ED Avulsion Dermal, ED Laceration Ext Sutr Stap Tape, [facility] [email or web address] Additional Instructions DISCHARGE INSTRUCTIONS & TREATMENT: You have been evaluated and treated in the emergency department today for your right arm lacerations. You had an update of your tetanus today. Keep the wound clean and dry. Wash gently with warm water and soap, pat dry. Do not scrub over the Steri-Strips, as this may cause him to come off prematurely. The Steri-Strips will fall off gradually over the next several days. You may apply a thin film of antibiotic ointment to the open areas for the next 3-4 days. Then apply the Xeroform gauze to the area, wrap with sterile gauze and the [place] wrap for comfort. You may take Tylenol as needed for pain. Please follow-up with your primary care provider in 2 days to recheck the wound , or return to the emergency department if you are unable to get in with your primary care provider. Please seek immediate medical attention if you would develop any signs or symptoms of infection, including increasing redness, swelling, pain, pus drainage, streaking up the arm, fever/chills, or feeling ill, or any other concerns.
[2017-07-15] MEDS ORDERED: APIX1TAB3 PO (15:44)
[2017-07-15] MEDS ORDERED: CARV3.122 PO (15:44)
[2017-07-15] MEDS ORDERED: ASPI81TA28 PO (15:44)
[2017-07-15 16:50] VITALS: BP 179/92; PULSE 58; O2SAT 100
--- NOTE | 2017-07-15 20:55 | EMERGENCY ROOM VISIT NOTE ---
ED Visit Note First contact with patient: 15:15 I have personally evaluated this patient examined her and reviewed the pertinent labs and data. I have discussed the case with Flower Coy, the nurse practitioner and agree with the plan. Please refer to the PA note This patient suffered a mechanical fall and tripped against a barbed wire and has multiple superficial skin tears on his right arm. There is nothing require suturing. He has on a blood thinner however he has no significant active bleeding. On my exam, he is neurologically neurovascular intact. We did update him on his tetanus booster the wounds were cleansed and dressed. I talked to the patient and his son at length and told him he needs to return if: he has worsening of symptoms, increasing redness or warmth, any new problems or concerns.
== END 2017-07-15 17:00 | disposition home or self-care (01) ==
LOC: C.EDB 15:01
DX: S41.111A Laceration without foreign body of right upper arm, initial encounter (principal); S51.811A Laceration without foreign body of right forearm, initial encounter; W45.8XXA Other foreign body or object entering through skin, initial encounter; Y93.89 Activity, other specified; Z79.01 Long term (current) use of anticoagulants; Z79.82 Long term (current) use of aspirin; F17.210 Nicotine dependence, cigarettes, uncomplicated; I10 Essential (primary) hypertension; Z79.899 Other long term (current) drug therapy; Z23 Encounter for immunization